=== PATIENT | male | born 1940 | race Caucasian/White ===

== ENCOUNTER 2022-06-21 07:49 | Observation (INO) ==
--- NOTE | 2022-05-30 10:36 | PAT Medication Instructions ---
Medication Instructions Date of Service May 30, 2022 Home Medications Medication Instructions Recorded sildenafil 50 mg tablet (Viagra) 50 mg PO ONCE PRN sexual activity 08/12/21 #10 tabs sildenafil 50 mg tablet (Viagra) 50 mg PO ONCE PRN apixaban 5 mg tablet (Eliquis) 5 mg PO BID cholecalciferol (vitamin D3) 10 mcg (400 unit) tablet (Vitamin D3) 10 mcg PO QAM cyanocobalamin (vitamin B-12) 500 mcg tablet (Vitamin B-12) 500 mcg PO QAM diltiazem HCl 240 mg capsule,24 hr,extended release 240 mg PO QAM fish, borage, flaxseed oils-omega 3,6,9 comb no.1 1,200 mg capsule ([place] 3-6-9) 1 cap PO QAM metoprolol succinate 25 mg capsule sprinkle, ext. release 24 hr 25 mg PO QPM multivitamin 1 tab PO QAM tamsulosin 0.4 mg capsule 0.4 mg PO QAM ASK your prescriber and surgeon apixaban 5 mg tablet (Eliquis) 5 mg PO BID(in order for spinal or epidural anesthesia, Eliquis needs to be stopped 72 hours/3 days before surgery. Please check if okay with doctor that prescribes this to you) STOP taking 2 weeks before surgery (or as soon as possible if surgery is within 2 weeks) fish, borage, flaxseed oils-omega 3,6,9 comb no.1 1,200 mg capsule ([place] 3-6-9) 1 cap PO QAM DO NOT take the morning of surgery sildenafil 50 mg tablet (Viagra) 50 mg PO ONCE PRN cholecalciferol (vitamin D3) 10 mcg (400 unit) tablet (Vitamin D3) 10 mcg PO QAM cyanocobalamin (vitamin B-12) 500 mcg tablet (Vitamin B-12) 500 mcg PO QAM multivitamin 1 tab PO QAM Take morning of surgery With a small sip of water, OTHERWISE NOTHING TO EAT OR DRINK AFTER MIDNIGHT: diltiazem HCl 240 mg capsule,24 hr,extended release 240 mg PO QAM tamsulosin 0.4 mg capsule 0.4 mg PO QAM Take evening before surgery metoprolol succinate 25 mg capsule sprinkle, ext. release 24 hr 25 mg PO QPM Other Notes If you have any questions please call us at [phone] or [phone] or [phone] or [phone]
--- NOTE | 2022-06-03 08:59 | History & Physical Report ---
Date of Service June 03, 2022 date of surgery: 06/21/22 Procedure: Right Total Knee Arthroplasty Surgeon: Anton Walker Assessment & Plan (1) Arthritis of right knee: Plan: At this point time patient has failed conservative measures and like to proceed to right total knee replacement. He will need medical clearance from Dr. Lenz prior to his surgery, we will continue his Eliquis during his postoperative course. Plan will be overnight stay at the hospital with discharge the following day with home health physical therapy when medically stable. We will follow-up in the office 2 weeks postop sooner if he is having any problems The risks and benefits have been discussed including, but not limited to, risk of infection, nerve injury, stiffness, loss of motion, failure to improve, etc. Reasonable outcomes and options of treatment were discussed. An explanation of appropriate alternatives to the procedure that may be advantageous were discussed and their risks and benefits, as well as the risks and benefits of not proceeding with treatment. I offered to answer any additional inquiries concerning the treatment involved. All the patient's questions were answered. The patient is agreeable, understanding of the treatment plan and alternatives, and wishes to proceed with the treatment plan. History of Present Illness Chief Complaint: Right knee pain Primary Care Provider: Crow Lenz MD Nirmal is a pleasant 81-year-old male who presents for preop evaluation prior to his right total knee replacement. Brad states that he has been having pain in his knee for several years now and is gradually worsened to the point is affecting his daily activities. He does use a knee brace daily, he denies any previous surgery. He has had multiple injections in the knee including viscosupplementation, corticosteroid injection as well as regenerative injections in [place]. He denies any relief. He is unable to take anti- inflammatories secondary to taking Eliquis. At this point time is failed conservative measures like proceed with a right total knee replacement Allergies Allergy/AdvReac Type Severity Reaction Status Date / Time percocet Allergy Intermediate Nausea Uncoded 05/27/22 15:13 Home Medications Medication Instructions Recorded Confirmed Type sildenafil 50 mg tablet (Viagra) 50 mg PO ONCE PRN sexual activity 08/12/21 05/27/22 Rx #10 tabs apixaban 5 mg tablet (Eliquis) 5 mg PO BID 05/27/22 05/27/22 History cholecalciferol (vitamin D3) 10 10 mcg PO QAM 05/27/22 05/27/22 History mcg (400 unit) tablet (Vitamin D3) cyanocobalamin (vitamin B-12) 500 500 mcg PO QAM 05/27/22 05/27/22 History mcg tablet (Vitamin B-12) diltiazem HCl 240 mg capsule,24 240 mg PO QAM 05/27/22 05/27/22 History hr,extended release fish, borage, flaxseed oils-omega 1 cap PO QAM 05/27/22 05/27/22 History 3,6,9 comb no.1 1,200 mg capsule ([place] 3-6-9) metoprolol succinate 25 mg capsule 25 mg PO QPM 05/27/22 05/27/22 History sprinkle, ext. release 24 hr multivitamin 1 tab PO QAM 05/27/22 05/27/22 History tamsulosin 0.4 mg capsule 0.4 mg PO QAM 05/27/22 05/27/22 History Past Med/Surg History Medical History Arthritis Atrial fibrillation Enlarged prostate without lower urinary tract symptoms (luts) Erectile dysfunction Gastric ulcer hx GERD (gastroesophageal reflux disease) Hypertension Pacemaker Implanted 2013, follows with Dr. Ivy ([place]) Urinary urgency Surgical History History of cardiac radiofrequency ablation 2017 History of cholecystectomy History of cochlear implant left History of colonoscopy History of esophagogastroduodenoscopy (EGD) History of permanent cardiac pacemaker placement 2013 Family History Father Throat cancer Social History Smoking Status: Former smoker Second Hand Exposure: No; Hx Alcohol Use: No Hx Substance Use: No Preferred Language: [place] It Support Technician Required: No Beliefs That Will Affect Care: None Current Living Situation: Spouse Feels Safe at Home: Yes Assistive Devices: Glasses Review of Systems Review of Systems: All systems reviewed & are unremarkable except as noted in HPI & below Constitutional: no fever, no chills and no sweats Respiratory: no cough and no dyspnea Cardiovascular: no chest pain, no dyspnea and no orthopnea Gastrointestinal: no abdominal pain, no nausea and no vomiting Musculoskeletal: as per Subjective / HPI Physical Exam Physical Exam: HT: 5ft 8in WT: 77.11kg Constitutional: WD/WN, vitals as above no acute distress Respiratory: normal respiratory effort, lungs clear to auscultation no respiratory distress, no labored breathing and does not use accessory muscles Cardiovascular: RRR, no murmur, no edema Gastrointestinal (Abdomen): normal bowel sounds, soft, nontender, no hepatosplenomegaly Musculoskeletal: Knee: + knee abnormal to inspection (Right Knee: ), + effusion (+1 effusion), + limited ROM of knee (ROM 0/3/110), + knee ROM with crepitation, + joint line tenderness (medial joint line) and + Geni's sign positive; no deformity, no skin erythema, no ecchymosis, no valgus laxity, no varus laxity, anterior drawer test negative, Judy's sign negative and pivot shift test negative Results & Data Results & Data ([facility]) Diagnostic Findings Right Knee X-ray: Right knee series showing advanced degenerative changes to the right knee, narrowing of the medial compartment and patello-femoral joint with patellar spurring noted, findings showing joint space narrowing of the medial compartment and patello-femoral joint, osteophyte formation and subchondral sclerosis noted. overall varus alignment. no acute bony pathology noted.
--- NOTE | 2022-06-03 12:06 | Anesthesiology Consultation ---
Date of Service June 03, 2022 Assessment & Plan (1) Encounter for pre-operative examination: - COVID screening: Per assessment on 06/03: No known COVID-19 positive contacts or current COVID-19 related symptoms. Travel screen negative. Patient vaccinated. At surgeon discretion if preop Covid testing being done. - Outpatient joint assessment: Pt currently scheduled for inpatient pathway. If surgeon requests review for outpatient joint pathway, patient is not recommended candidate for outpatient joint program from anesthesia standpoint. - Eliquis instructions: patient made aware that in order for spinal anesthesia, Eliquis needs to be held 72 hours/3 days prior to surgery. Patient voiced understanding/will check if okay with prescriber. - Anesthesia concerns: Pt anxious regarding possible SAB. Discussed SAB vs GA. To discuss further with anesthesiologist AM DOS. 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 - Pt scheduled to see cardio prior to surgery. Awaiting upcoming cardiology office visit note (appt 06/14, Dr. Ivy). Chart Review Chart Review: Patient seen in Pre Admission Testing Teaching & Discussion Pre-Anesthesia Teaching/Discussion Notes: Instructed NPO after midnight before surgery,except medications with 15 cc of water. Medication instructions provided according to the PAT guidelines. History Surgery Operation Date: 06/21/22 09:05 Proposed Procedures p Right Total Knee Arthroplasty - Anton Walker DO Height/Weight Height: 5 ft 8 in Weight: 78.2 kg Allergies Allergy/AdvReac Type Severity Reaction Status Date / Time No Known Allergies Allergy Unverified 06/03/22 12:18 Medications Home Medications Medication Instructions Recorded Confirmed Last Taken sildenafil 50 mg tablet (Viagra) 50 mg PO ONCE PRN sexual activity 08/12/21 05/27/22 Unknown #10 tabs apixaban 5 mg tablet (Eliquis) 5 mg PO BID 05/27/22 05/27/22 Unknown cholecalciferol (vitamin D3) 10 10 mcg PO QAM 05/27/22 05/27/22 Unknown mcg (400 unit) tablet (Vitamin D3) cyanocobalamin (vitamin B-12) 500 500 mcg PO QAM 05/27/22 05/27/22 Unknown mcg tablet (Vitamin B-12) diltiazem HCl 240 mg capsule,24 240 mg PO QAM 05/27/22 05/27/22 Unknown hr,extended release fish, borage, flaxseed oils-omega 1 cap PO QAM 05/27/22 05/27/22 Unknown 3,6,9 comb no.1 1,200 mg capsule ([place] 3-6-9) metoprolol succinate 25 mg capsule 25 mg PO QPM 05/27/22 05/27/22 Unknown sprinkle, ext. release 24 hr multivitamin 1 tab PO QAM 05/27/22 05/27/22 Unknown tamsulosin 0.4 mg capsule 0.4 mg PO QAM 05/27/22 05/27/22 Unknown Past Medical History Medical History Arthritis Atrial fibrillation Enlarged prostate without lower urinary tract symptoms (luts) Erectile dysfunction Gastric ulcer hx GERD (gastroesophageal reflux disease) Hypertension Pacemaker Implanted 2013, follows with Dr. Ivy ([place]) Urinary urgency Exercise / Class Metabolic Activity III < 4 Walking/Shop/Light housework Past Family History Family History Father Throat cancer Past Surgical History Surgical History History of cardiac radiofrequency ablation 2017 History of cholecystectomy History of cochlear implant left History of colonoscopy History of esophagogastroduodenoscopy (EGD) History of permanent cardiac pacemaker placement 2013 Past Anesthesia History No Hx of Anesthesia Complications and No Family Hx of Anesthesia Complications History of PONV No Hx of PONV and No Hx of Motion Sickness Social History Smoking Status: Former smoker tobacco type: cigarettes Do You Dip or Chew Tobacco: No Smoking End Date: Quit 60+ yr ago Hx Alcohol Use: No Hx Substance Use: No Review of Systems Patient denies chest pain, shortness of breath, fever, chills, cough, wheezing, palpitations. Physical Exam Vital Signs VITALS BP 118/73 P 60 TEMP 97.9 SP02 97%RA RESP 18 PHYSICAL Full cervical extension range of motion. Full TMJ range of motion. TMD 4 finger breaths Mallampati Score 2 Dentition: upper partial Lungs: clear throughout to auscultation Cardiac: regular rate and rhythm, no murmurs noted Spine: normal Carotid arteries: negative bruit Extremities: no edema + cochlear implant on left, hearing aid on right Lab Results Anesthesia Preop Results Results Anesthesia Widget: WBC 8.97 K/ul (4.8-10.8) 06/03/22 Hgb 15.1 g/dl (14.0-18.0) 06/03/22 Hct 43.3 % (42.0-52.0) 06/03/22 Plt 199 K/uL (130-400) 06/03/22 Na 138 mmol/L (136-145) 06/03/22 K 4.5 mmol/L (3.5-5.1) 06/03/22 Cl 103 mmol/L (98-107) 06/03/22 CO2 31 mmol/L (21-32) 06/03/22 BUN 23 mg/dl (6-23) 06/03/22 Creat 1.43 mg/dl (0.6-1.4) H 06/03/22 Glucose Level 96 mg/dl (70-99(Fasting)) 06/03/22 PT 10.9 Seconds (9.0-12.0) 06/03/22 PTT 28.5 Seconds (21.0-31.0) 06/03/22 INR 1.0 (0.9-1.1) 06/03/22 HA1c 5.7 % (4.5-5.6) H 06/03/22 Urine Color Yellow 06/03/22 Urine Appearance Clear (Clear) 06/03/22 Urine pH 5.5 (4.5-7.5) 06/03/22 Urine Specific [place] 1.005 (1.000-1.030) 06/03/22 Urine Protein Negative (Negative) 06/03/22 Urine Glucose (UA) Negative (Negative) 06/03/22 Urine Ketones Negative (Negative) 06/03/22 Urine Blood Negative (Negative) 06/03/22 Urine Nitrite Negative (Negative) 06/03/22 Urine Bilirubin Negative (Negative) 06/03/22 Urine Urobilinogen Negative (Negative) 06/03/22 Urine Leukocyte Esterase Trace (Negative) H 06/03/22 Urine WBC (Auto) 1-5 /hpf (0-5) 06/03/22 Urine RBC (Auto) 0-4 /hpf (0-4) 06/03/22 Urine Hyaline Casts (Auto) 0 /lpf (0-5) 06/03/22 Urine Epithelial Cells (Auto) 0-5 /lpf (0-5) 06/03/22 Urine Bacteria (Auto) Negative (Negative) 06/03/22 Blood Type B Positive 06/03/22 Antibody Screen NEGATIVE 06/03/22 Testing Electrocardiogram Date: 06/03/22 Atrial-paced rhythm at 64bpm. Chest X-Ray Date: 06/03/22 FINDINGS: The lungs are clear. Cardiac silhouette is normal in size. No pleural effusions. No pneumothorax. There is a left-sided dual-chamber pacemaker. IMPRESSION: No acute process. Other Testing Pacer check (04/28/22) Battery life 3 years. Mode DDDR. RVP 42%. RVP 1%. No significant device related abnormalities noted per report. COVID-19 Risk Screen Screening Information COVID-19 Screen Date: 06/03/22 Exposure 21 Days Family/Household +COVID Last 21 Days: No Exposure 10 Days Any COVID Exposure Last 10 Days: No Symptoms Last 10 Days Experienced COVID Sx Last 10 Days: No + COVID 0-90 Days COVID + in Last 0-90 Days: No
[~2022-06-21 07:49] MED LIST: ACETAMINOPHEN 500 MG TAB PO SCH; BUPIVACAINE 0.5 % 5 MG/1 ML PF 10ML VIAL ONE; CeleBREX 200 MG CAP PO SCH; FAMOTIDINE 20 MG TAB PO SCH; GABAPENTIN 300 MG CAP PO SCH; METOCLOPRAMIDE HCL 10 MG TABLET PO SCH; ROPIVACAINE 0.5% 5 MG/ML 30 ML VIAL ONE; ROPIVACAINE 0.5% HCL/PF 150 MG, BUPIVACAINE 0.75% MPF 20 ML, EPINEPHrine 30MG/30ML (OR ... INSTIL SCH; ceFAZolin 2000MG 2,000 MG/15 ML SYR IV SCH; dexAMETHasone 4 MG TAB PO SCH
--- NOTE | 2022-06-21 09:10 | History & Physical Bridge Note ---
Date of Service June 21, 2022 History & Physical Bridge Note I have examined the patient, reviewed the History & Physical and in the interval since the performance of the History & Physical I have noted the following changes of clinical significance: no changes noted
[2022-06-21] MEDS ORDERED: MIDAZOLAM HCL 1 MG/ML 2ML VIAL ONE (10:00)
[2022-06-21] MEDS ORDERED: LIDOCAINE 2% MPF LOCAL 5 ML VIAL INFIL ONE (10:00)
[2022-06-21] MEDS ORDERED: PROPOFOL IV EMULSION 10 MG/ML 20 ML VIAL IV ONE ×2 (10:00→13:30)
[2022-06-21] MEDS ORDERED: ePHEDrine sulfate 50 MG/ML AMP IV PRN (10:36)
[2022-06-21] MEDS ORDERED: ONDANSETRON INJ 2 MG/ML 2 ML VIAL IV PRN ×2 (10:36→15:03)
[2022-06-21] MEDS ORDERED: fentaNYL citrate 100 MCG/2 ML VIAL IV PRN (10:36)
[2022-06-21] MEDS ORDERED: ATROPINE SULFATE 0.1 MG/ML 10ML SYR IV PRN (10:36)
[2022-06-21] MEDS ORDERED: ORTHO JOINT ANESTHETIC ONE (10:44)
[2022-06-21] MEDS ORDERED: TRANEXAMIC ACID / 0.7% NACL 1000MG/100ML BAG IV ONE (11:50)
[2022-06-21] MEDS ORDERED: TRANEXAMIC ACID / 0.7% NACL 1,000 MG/100 ML BAG IV ONE ×2 (11:54→12:00)
[2022-06-21] MEDS ORDERED: ePHEDrine sulfate 50 MG/ML SYR ONE (12:20)
[2022-06-21] MEDS ORDERED: PHENYLEPHRINE 100MCG/ML 5ML SYR ONE (13:01)
--- NOTE | 2022-06-21 13:08 | Operative Report ---
Post Operative Report Pre & Post Diagnosis Operation Date: 06/21/22 10:45 Pre-Op Diagnosis: Right Knee Osteoarthritis Post-Op Diagnosis: Right Knee Osteoarthritis I identified the patient and participated in the time-out.: Yes Procedure Operation Date: 06/21/22 10:45 Actual Procedures p Right Total Knee Arthroplasty(Right) utilizing Lipscomb & NephHive7 journey 2 nonblock total knee arthroplasty size femur 5 tibia 5 Poly 12 patella 35 sumi- Anton Walker DO Surgeon Anton Walker DO Gaming Department Head RONDA Mujica Estimated Blood Loss 5 Findings Consistent with Post-Op Diagnosis Patient presents with severe end-stage tricompartmental DJD 7 degree flexion contracture varus alignment subchondral sclerosis marginal osteophytes eburnated [id number] with large effusion Specimens Bone and cartilage Drains Medium bore Hemovac Anesthesia Type MAC Spinal Regional Complications none Disposition Accompanied Patient To Recovery: No Disposition: Recovery Room Indications Patient presents after failed attempted conservative management clinic physical therapy anti-inflammatories relative rest activity modification corticosteroid injection viscosupplementation above intraoperative findings were noted Description of Procedure After proper prepping and draping of the Right lower extremity anterior midline incision was made over the region of the extensor extensor mechanism after meticulous hemostasis was obtained and maintained in subcutaneous tissues a medial parapatellar incision was made The patella was subluxed lateralward the medial lateral gutter were cleaned from any hypertrophic synovitis and scar tissue of the distal femoral block was placed and the distal femoral osteotomy cut was made subsequently the chamfers anterior and posterior osteotomy cuts were made utilizing the 4-in-1 block the tibia was subsequently subluxed anteriorward medial and ateral meniscal remnants were excised in their entirety remnants of the anterior and posterior cruciate ligaments were excised in their entirety excellent exposure of the proximal tibia was obtained the tibial osteotomy guide was placed on the proximal tibial osteotomy cut was made once again the knee was irrigated with copious amounts of sterile saline solution the patella was subsequently everted lateralward thickened scar tissue around the patella was removed the patella was subsequently cut utilizing a freehand technique and was drilled prepared for final preparation and placement of patella socially flexion-extension gaps were checked and the equal and symmetric trials were placed to the appropriate femoral and tibial trials with poly-spacer being placed for equal flexion and extension gaps and full range of motion including extension to 0 and flexion to 140 the trial components after having been taken to recovery range of motion was subsequently removed meticulous hemostasis was obtained and maintained subsequently a knee block injection of joint cocktail including ropivacaine 0.5% 150 mg. Bupivacaine 0.5% epinephrine 1-200,030 mL's toradol 30 mg dexamethasone 4 mg ketamine 10 mg clonidine 100 karley rograms normal saline solution 30 mg was infiltrated into the soft tissues of the posterior knee medial lateral gutters and periosteal synovium special attention was paid to protect neurovascular structures at all times subsequently trial components having been removed the knee was irrigated with sterile saline solution. debris was removed the proximal tibia was subsequently prepared and was made ready for the placement of the tibial component tibial component was also cemented and tamped into position the femoral component was subsequently placed and cemented in the position the patellar component was subsequently cemented in position because hemostasis once again obtained and maintained wound having been thoroughly irrigated with debridement and debridement lavage was performed as well as a medial parapatellar incision closed with #1 Vicryl in interrupted fashion subcutaneous was closed with #2 Vicryl skin was closed with skin clips. PA-C was necessary for prepping and drapping as well as wound closure of deep fascia Sub cutaneous tissue and skin and was necessary for the case. A sterile compressive dressing was placed patient was taken to recovery in stable condition of report dictated by Aaron I attest to the content of the Intraoperative Record and any orders documented therein. Any exceptions are noted below.Due to the complex nature of the procedure, the entire surgery was performed with the operational assistance of RONDA Mujica. The construction assistant, under direct supervision, was involved in the actual performance of all aspects of the surgical procedure including hemostasis, tissue retraction and incision, instrument management, patient positioning, and wound closure. I attest to the content of the Intraoperative Record and any orders documented therein. Any exceptions are noted below.
--- NOTE | 2022-06-21 14:42 | Anesthesiology Progress Note ---
Date of Service June 21, 2022 Anesthesia Post Procedure Vital Signs Vital Signs: Temp Pulse Pulse Resp BP Pulse Ox O2 Del Method 06/21/22 14:30 63 20 98/55 L 97 Room Air 06/21/22 14:20 64 16 99/56 L 99 Room Air 06/21/22 14:10 60 20 97/54 L 93 Oxymask 06/21/22 14:00 62 18 99/54 L 94 Oxymask 06/21/22 13:50 69 22 95/55 L 95 Oxymask 06/21/22 13:41 36.3 C L 60 66 18 92/53 L 97 Oxymask 06/21/22 08:54 36.7 C 66 18 133/79 97 Room Air O2 Flow Rate 06/21/22 14:30 06/21/22 14:20 06/21/22 14:10 2 06/21/22 14:00 2 06/21/22 13:50 6 06/21/22 13:41 6 06/21/22 08:54 Transfer of Care Handoff Completed per policy Notes Mental Status: alert / awake / arousable Patient Amnestic to Procedure: Yes Nausea / Vomiting: adequately controlled Pain: adequately controlled Airway Patency, RR, SpO2: stable & adequate BP & HR: stable & adequate Hydration State: stable & adequate Anesthetic Complications: no major complications apparent
--- NOTE | 2022-06-21 14:44 | XRay Report ---
XR knee RT 1 or 2V routine CLINICAL HISTORY: Postoperative evaluation. COMPARISON: None FINDINGS: Alignment of the total right knee arthroplasty is anatomic. There is no periprosthetic fra cture or unexpected radiopaque foreign body. Drains are in place. IMPRESSION: Expected findings following total right knee arthroplasty. ACT 112: Negative or not required by law. Electronically signed by: Matheus Bond M.D. 06/21/2022 2:43 PM
[2022-06-21] MEDS ORDERED: LR 500ML BOLUS, THEN 15ML/HR IV SCH (15:00)
[2022-06-21] MEDS ORDERED: MAGNESIUM HYDROXIDE SUSP 30 ML UDC PO PRN (15:03)
[2022-06-21] MEDS ORDERED: NALOXONE HCL 0.4 MG/1 ML VIAL/CARP IV PRN (15:03)
[2022-06-21] MEDS ORDERED: bisacodyL 10 MG SUPP PR PRN (15:03)
[2022-06-21] MEDS ORDERED: HYDROmorphone INJ 0.5 MG/0.5 ML SYR IV PRN (15:03)
[2022-06-21] MEDS ORDERED: METOCLOPRAMIDE HCL INJ 5 MG/ML 2 ML VIAL IV PRN (15:03)
[2022-06-21] MEDS ORDERED: SODIUM CHLORIDE 0.9% 1000ML 1,000 ML IV SCH (15:03)
[2022-06-21] MEDS ORDERED: diphenhydrAMINE Capsule 25 MG CAP PO PRN (15:03)
[2022-06-21] MEDS ORDERED: oxyCODONE HCL IR 5 MG TAB (IMMEDIATE RELEASE) PO PRN (15:03)
[2022-06-21] MEDS: ACETAMINOPHEN 500 MG TAB PO SCH ×2 (15:50→21:43)
[2022-06-21] MEDS: ceFAZolin 2000MG 2,000 MG/15 ML SYR IV SCH (20:55)
[2022-06-21] MEDS ORDERED: SENNA 8.6 MG TAB PO SCH (21:00)
[2022-06-21] MEDS ORDERED: METOPROLOL SUCC 25MG EXT REL TAB PO SCH (21:00)
[2022-06-21] MEDS: DOCUSATE SODIUM 100 MG CAP PO SCH (21:41)
[2022-06-21] MEDS: APIXABAN 5 MG TABLET PO SCH (21:42)
[2022-06-22] MEDS: ceFAZolin 2000MG 2,000 MG/15 ML SYR IV SCH (05:53)
[2022-06-22] MEDS: ACETAMINOPHEN 500 MG TAB PO SCH (05:54)
[2022-06-22 06:58] LABS: Hematocrit (blood only) 39.1 % (42.0-52.0); Hemoglobin 13.7 g/dl (14.0-18.0); Mean Corpuscular Hemoglobin 31.9 pg (25.0-34.0); Mean Corpuscular Volume 90.9 fL (80.0-100.0); Mean Platelet Volume 9.6 fL (9.4-12.4); Platelet Count 182 K/uL (130-400); RDW Coefficient of Variation 11.6 % (11.5-14.5); White Blood Count 22.36 K/ul (4.8-10.8)
[2022-06-22 07:45] LABS: BUN Creatinine Ratio 15.7 (10-20); Calcium 8.6 mg/dl (8.5-10.1); Creatinine Clr Calc Pharmacy 33.8 ml/min; Est GFR (African American) 44.4 ml/min; Est GFR (Non-African American) 38.3 ml/min; Potassium 4.4 mmol/L (3.5-5.1)
[2022-06-22] MEDS: APIXABAN 5 MG TABLET PO SCH (08:23)
[2022-06-22] MEDS: DOCUSATE SODIUM 100 MG CAP PO SCH (08:24)
--- NOTE | 2022-06-22 08:26 | Orthopedic Progress Note ---
Date of Service June 22, 2022 Assessment & Plan (1) History of total right knee replacement: Plan: POD #1 s/p Right TKA pt/ot dvt proph with INO/SCD/resume his Eliquis plan for d/c home with HHPT Admission and Anticipated Discharge Date Admission Date: June 21, 2022 Subjective POD #1 s/p Right TKA Review of Systems Constitutional: no fever, no chills and no sweats Respiratory: no cough and no dyspnea Cardiovascular: no chest pain and no dyspnea Gastrointestinal: no abdominal pain, no nausea and no vomiting Physical Exam Physical Exam: Vital Signs Temp 36.5 C 06/22/22 07:27 Pulse 64 06/22/22 07:27 Resp 16 06/22/22 07:27 BP 114/68 06/22/22 07:27 Pulse Ox 92 06/22/22 07:27 O2 Del Method Room Air 06/22/22 07:27 O2 Flow Rate 2 06/21/22 14:10 Intake & Output 06/21/22 06/22/22 06/22/22 18:59 06:59 18:59 Intake Total 2200 / 2801.667 601.667 / 2801.667 Output Total 5 / 1405 1400 / 1405 Balance 2195 / 1396.667 -798.333 / 1396.66 7 Weight 77.6 kg Intake: IV 200 / 801.667 601.667 / 801.667 Lactated Ringe r's 1,000 ml @ 15 0 / 0 mls/hr IV .Q24 H RAD[facility] Rx#: [id number] Sodium Chlorid e 0.9% 1000ML 1, 601.667 / 601.667 000 ml @ 100 m ls/hr IV .Q10H [facility] Rx#:[id number] Tranexamic Aci d / 0.7% NaCl 1, 200 / 200 000 mg In 100 ml @ 600 mls/hr IV 1200 ONE Rx #:[id number] IV Perioperative 1999 / 1999 Output: Urine 1200 / 1200 Estimated Blood Loss 5 / 5 Drain Output 200 / 200 Right Knee Hem ovac 200 / 200 Other: Weight Measureme nt Method Standing Scale Musculoskeletal: Right Leg: NVDI, calf SNT, negative donovan sign. DP palpable, able to wiggle toes/ankle movement without difficulty. dressing clean dry and intact. Results & Data ([facility]) Vital Signs (Past 12 Hours) Vital Signs Temp Pulse Resp BP Pulse Ox O2 Del Method 06/22/22 07:27 36.5 C 64 16 114/68 92 Room Air 06/22/22 02:49 36.7 C 66 16 110/66 95 Room Air 06/21/22 22:48 36.4 C L 72 16 113/67 95 Room Air Laboratory Results Laboratory Results WBC 22.36 K/ul (4.8-10.8) H 06/22/22 06:22 RBC 4.30 M/uL (4.70-6.10) L 06/22/22 06:22 Hgb 13.7 g/dl (14.0-18.0) L 06/22/22 06:22 Hct 39.1 % (42.0-52.0) L 06/22/22 06:22 MCV 90.9 fL (80.0-100.0) 06/22/22 06:22 MCH 31.9 pg (25.0-34.0) 06/22/22 06:22 MCHC 35.0 g/dL (32.0-36.0) 06/22/22 06:22 RDW Std Deviation 39.0 fL (36.4-46.3) 06/22/22 06:22 RDW Coeff of Dayana 11.6 % (11.5-14.5) 06/22/22 06:22 Plt Count 182 K/uL (130-400) 06/22/22 06:22 MPV 9.6 fL (9.4-12.4) 06/22/22 06:22 Sodium 135 mmol/L (136-145) L 06/22/22 06:22 Potassium 4.4 mmol/L (3.5-5.1) 06/22/22 06:22 Chloride 103 mmol/L (98-107) 06/22/22 06:22 Carbon Dioxide 26 mmol/L (21-32) 06/22/22 06:22 Anion Gap 6 (3-11) 06/22/22 06:22 BUN 26 mg/dl (6-23) H 06/22/22 06:22 Creatinine 1.66 mg/dl (0.6-1.4) H 06/22/22 06:22 Est Cr Clr Drug Dosing 33.8 ml/min 06/22/22 06:22 Est GFR ( Amer) 44.4 ml/min 06/22/22 06:22 Est GFR (Non-Af Amer) 38.3 ml/min 06/22/22 06:22 BUN/Creatinine Ratio 15.7 (10-20) 06/22/22 06:22 Glucose 134 mg/dl (70-99(Fasting)) H 06/22/22 06:22 Calcium 8.6 mg/dl (8.5-10.1) 06/22/22 06:22 SARS-CoV-2, RNA, NAAT NEGATIVE (NEGATIVE) 06/21/22 08:29 Impressions Knee X-Ray 06/21/22 13:53 XR knee RT 1 or 2V routine CLINICAL HISTORY: Postoperative evaluation. COMPARISON: None FINDINGS: Alignment of the total right knee arthroplasty is anatomic. There is no periprosthetic fracture or unexpected radiopaque foreign body. Drains are in place. IMPRESSION: Expected findings following total right knee arthroplasty. ACT 112: Negative or not required by law. Electronically signed by: Matheus Bond M.D. 06/21/2022 2:43 PM
--- NOTE | 2022-06-22 08:36 | Discharge Summary ---
Date of Service date of discharge: June 22, 2022 date of admission: June 21, 2022 Admission HPI Per Admitting Provider Nirmal is a pleasant 81-year-old male who presents for preop evaluation prior to his right total knee replacement. Brad states that he has been having pain in h is knee for several years now and is gradually worsened to the point is affecting his daily activities. He does use a knee brace daily, he denies any previous surgery. He has had multiple injections in the knee including viscosupplementation, corticosteroid injection as well as regenerative injections in [place]. He denies any relief. He is unable to take anti- inflammatories secondary to taking Eliquis. At this point time is failed conservative measures like proceed with a right total knee replacement Principal Diagnosis right knee osteoarthritis Discharge Exam Vital Signs Temp 36.5 C 06/22/22 07:27 Pulse 64 06/22/22 07:27 Resp 16 06/22/22 07:27 BP 114/68 06/22/22 07:27 Pulse Ox 92 06/22/22 07:27 O2 Del Method Room Air 06/22/22 07:27 O2 Flow Rate 2 06/21/22 14:10 Intake & Output 06/21/22 06/22/22 06/22/22 18:59 06:59 18:59 Intake Total 2200 / 2801.667 601.667 / 2801.667 Output Total 5 / 1405 1400 / 1405 Balance 2195 / 1396.667 -798.333 / 1396.667 Weight 77.6 kg Intake: IV 200 / 801.667 601.667 / 801.667 Lactated Ringer's 1,000 ml @ 15 0 / 0 mls/hr IV .Q24H [facility] Rx#: [id number] Sodium Chloride 0.9% 1000ML 1, 601.667 / 601.667 000 ml @ 100 mls/hr IV .Q10H [facility] Rx#:[id number] Tranexamic Acid / 0.7% NaCl 1, 200 / 200 000 mg In 100 ml @ 600 mls/hr IV 1200 ONE Rx#:[id number] IV Perioperative 1999 / 1999 Output: Urine 1200 / 1200 Estimated Blood Loss 5 / 5 Drain Output 200 / 200 Right Knee Hemovac 200 / 200 Other: Weight Measurement Method Standing Scale Musculoskeletal Right Knee: NVDI, calf SNT, negative donovan sign. DP palpable, able to wiggle toes/ankle movement without difficulty. dressing clean dry and intact. expected post-operative bruising noted. Discharge Data Allergies Allergy/AdvReac Type Severity Reaction Status Date / Time No Known Allergies Allergy Verified 06/21/22 08:50 Procedures Performed Operation Date: 06/21/22 10:45 Actual Procedures p Right Total Knee Arthroplasty(Right) - Anton Jarquin DO Ordered Studies 06/21/22 05:00 US - OR guided needle placemen Routine Hospital Course (1) History of total right knee replacement: POD #1 s/p Right TKA pt/ot dvt proph with INO/SCD/resume his Eliquis plan for d/c home with HHPT Total Time Total Time Spent Total Time Spent (In Minutes): 20 Discharge Plan Discharge Items Patient Disposition: Home - Home Health Services Reason For Visit: POST OP TKA Discharge Diagnosis: RIGHT TOTAL KNEE REPLACEMENT Activity: Per Instructions section Weightbearing Comment: WBAT WITH WALKER Non-emergency contact: Surgeon Call non-emergency contact if: you have any medication questions, your temperature is above 101, your wound has increased redness, your wound has increased drainage and your wound pain has increased Follow-up/Referrals: Crow Lenz MD [Primary Care Provider] - Diet: Regular Addtl Attending Provider Instructions: ACTIVITY RECOMMENDATIONS: SELF CARE INSTRUCTIONS AFTER TOTAL KNEE REPLACEMENT A. You may need to continue a physical therapy program after discharge from the hospital. There are several options available to you. Your doctor will assist you in selecting the best one for you. 1. An out-patient facility 2 to 3 times a week for therapy or home therapy. 2. Continue working on all exercises taught to you in the hospital. Your goals should be to increase bending of your knee to 90 degrees and beyond and to fully straighten your knee. B. You may progress at your own pace from walking with a walker or crutches to a cane; then to no assistive devices. C. Make walking a part of your daily routine. Be up as much as comfortable with rest periods throughout the day. Rest with leg elevation is very important. Use the ice wrap frequently for the first 3-4 weeks. D. There are no restrictions on activities. You may ride in a car, shop, pa rticipate in emd special education teacher and all social activities. E. Wear the long elastic stockings (INO hose) 20 hours a day for 2 weeks after surgery. They can be removed several times a day for laundering and for a bath. F. You may shower, no tub baths until cleared by your doctor. SPECIAL CARE INSTRUCTIONS: VERY IMPORTANT TO READ AND REVIEW A. There are a few signs you need to watch for after you are home. Call [facility] [place] if you notice any of the followin. Increased severe knee pain. Some pain is expected especially when you exercise. 2. Increased swelling in your leg or knee; pain or swelling of the calf muscle in either lower leg. 3. Any fluid drainage from the incision. 4. Shortness of breath or chest pain. B. Please call [facility] at if you have any concerns or questions about your operation or recovery. The doctor or his nurse will return your call promptly. C. You must take antibiotics before dental work, bladder, bowel or other surgery. Your doctor will provide you with a permanent care to carry describing this precaution. IMPORTANT: * RESUME YOUR REGULAR DOSE OF ELIQUIS POST OP. * HIGH RISK PATIENTS MAY BE PRESCRIBED A STRONGER BLOOD THINNER. THIS WILL BE PROVIDED AT DISCHARGE. * CALL IF INCREASED PAIN, REDNESS, DRAINAGE OR FEVER GREATER THAT 101. * WEAR INO HOSE 20 HOURS PER DAY FOR 2 WEEKS. * DRESSING INSTRUCTIONS * ARIANA Dressing- This is a large suction dressing covering your incision. This will help pull any excess drainage from the wound and allow your incision to heal properly. You may shower with this if you can keep the unit outside of the shower. If any bleeding or leakage is noted please call your doctor's office. This will remain on your incision for 7 days and then should be removed. This can be done yourself or by the home nursing staff if applicable. The entire unit is disposable once removed. Once removed, keep incision clean and dry. If redness or drainage is noted, please call your surgeon. ONCE ARIANA IS REMOVED, FOLLOW THESE INSTRUCTIONS: DERMABOND Prineo- This is a mesh tape dressing that is covered with glue. It should remain in place until the incision is properly healed, usually 10-14 days. This dressing is designed to naturally slough off. You may trim the excess mesh tape as it peels off. Incision may be briefly wet in a shower. Dry immediately by blotting with a clean, dry towel. Do not bath or swim until instructed by your doctor. Do not scratch, rub, or pick at the dressing. Do not apply any topical ointments or lotions until dressing is completely removed and/or instructed by your doctor. There may be a small piece of suture material at one end of your incision. Do not pull or trim this. If it is bothersome or catching on clothing, you may co sravani it with a band-aid. IF INCISION IS LEAKING THROUGH DRESSING, CALL THE OFFICE . FOLLOW UP VISIT: If appointment is not already scheduled: Please call [facility] [place] to make a follow-up appointment for 2 weeks after your surgery at . Pending Studies at Discharge: No Stand-Alone Forms: My [facility] Medications and DC Order Prescriptions: New acetaminophen [Tylenol Extra Strength] 500 mg Tablet 1,000 mg PO Q8 21 Days Qty: 126 0RF oxycodone 5 mg Tablet 5 - 10 mg PO Q6H PRN (Reason: pain) Qty: 30 0RF Rx Instructions: ONGOING THERAPY, SUPERVISING DR LINDSAY JARQUIN. MAX 6 TABS IN 24 HOURS docusate sodium 100 mg Capsule 100 mg PO BID 10 Days Qty: 20 0RF cefadroxil 500 mg capsule 500 mg PO BID 14 Days Qty: 28 0RF Continued sildenafil [Viagra] 50 mg tablet 50 mg PO ONCE PRN (Reason: sexual activity) Qty: 10 6RF Rx Instructions: administer 30 minutes to 4 hours before activity multivitamin Tablet 1 tab PO QAM diltiazem HCl 240 mg Capsule,Extended Release 24 Hr 240 mg PO QAM cyanocobalamin (vitamin B-12) [Vitamin B-12] 500 mcg Tablet 500 mcg PO QAM cholecalciferol (vitamin D3) [Vitamin D3] 10 mcg (400 unit) Tablet 10 mcg PO QAM Eliquis 5 mg Tablet 5 mg PO BID metoprolol succinate 25 mg Capsule,Sprinkle,Er 24hr 25 mg PO QPM tamsulosin 0.4 mg capsule 0.4 mg PO QAM Discontinued [place] 3-6-9 1,200 mg Capsule 1 cap PO QAM Admission Data Admit Date/Time: 06/21/22 13:53 Attending Provider: Anton Jarquin Admit Provider: Anton Jarquin Primary Care Provider: Crow Lenz
[2022-06-22] MEDS ORDERED: MULTIVITAMIN TAB PO SCH (09:00)
[2022-06-22] MEDS ORDERED: dilTIAZem HCL 240 MG CAPCR PO SCH (09:00)
[2022-06-22] MEDS ORDERED: CHOLECALCIFEROL 400 UNITS 10 MCG TAB PO SCH (09:00)
[2022-06-22] MEDS ORDERED: CYANOCOBALAMIN (B-12) 500 MCG TABLET PO SCH (09:00)
[2022-06-22] MEDS ORDERED: TAMSULOSIN HCL 0.4 MG CAP PO SCH (09:00)
[2022-06-24] MEDS ORDERED: LR 500ML BOLUS, THEN 15ML/HR IV SCH (06:00)
== END 2022-06-22 13:46 | disposition home health service (06) ==
LOC: ASU 07:49 → 3E 07:49

== ENCOUNTER 2023-09-09 23:29 | Inpatient (IN) ==
--- NOTE | 2023-09-10 00:22 | Emergency Department Note ---
Impression & Plan Ventricular tachycardia, Near syncope Admit to the [facility] ED Provider Note NAME: KHARI ROA AGE: 82 SEX: Male INFORMANT: Patient ED PROVIDER(S): Josefina Henderson DO CHIEF COMPLAINT: Episode of shortness of breath and near syncope PLAN: Disposition: Admit to the [facility] MEDICAL DECISION MAKING: This is an 82-year-old male patient who presents to the emergency department after an abrupt episode of shortness of breath, head pressure, facial flushing, loss of vision and near syncope. The patient has had these episodes before and had a pacemaker placed. Following this episode, the patient felt very dizzy, fatigued and lightheaded for period of time. Laboratory studies revealed no leukocytosis or anemia. BUN was 30 and creatinine was 1.79. This was consistent with some mild dehydration. Alcohol level was negative. Troponin was normal. Patient was bolused with normal saline solution. His [employer] pacer was interrogated and noted 22- second run of ventricular tachycardia at a rate as high as 222 bpm. Care/management discussed with: The patient's cousin who is at the bedside; the [employer] rep; the [facility] Triage Nursing notes: Reviewed and agree with them. Vital Signs: reviewed and unremarkable Additional History obtained from: The patient's cousin who is at the bedside Chronic Medical/Social Conditions affecting care: [id number] post ablation and pacemaker placement Prior/ Outside/ External records reviewed: The [employer] interrogation of the pacemaker Differential Diagnosis: Ventricular arrhythmia; atrial arrhythmia; dehydration; GERD Diagnostics, independently interpreted by me: ECG: Normal sinus rhythm at [address] segment elevation or signs of ischemia. There is no ectopy Cardiac Monitoring: Normal sinus rhythm at 68 Imaging studies: Portable chest x-ray-as per my independent interpretation- cardiomegaly with mild pulmonary vascular congestion HPI: 82 year old Male arrives for evaluation of near syncope. [place] when he had a very sudden onset of flushing in his face and a feeling as if he could not breathe. He then developed head pressure and his vision began to close in. He told his cousin he felt as if he was going to fall off his chair. This quickly passed and he felt dizzy, fatigued and lightheaded. Patient describes a previous episodes like this prior to his pacemaker. PAST MEDICAL HISTORY: Atrial fibrillation-status post ablation, pacemaker placement; see below PAST SURGICAL HISTORY: See Below, SOCIAL HISTORY: See Below, HOME MEDICATIONS: See list ALLERGIES: None VITALS: See Below PHYSICAL EXAMINATION: HEENT: Head - normocephalic and atraumatic. Pupils are equal, round, and reactive to light. Extraocular eye muscles are intact and sclera are anicteric. Ears - bilaterally patent canals with noninjected tympanic membranes and no evidence of hemotympanum. Nose - moist nasal mucosa without discharge. Mouth - moist buccal mucosa. Oropharynx is nonerythematous and there is no tonsillar exudate or edema noted. Neck: Supple; no JVD or cervical lymphadenopathy Heart: Regular rate and rhythm. There is a normal S1 and S2 with no murmurs, clicks, or gallops appreciated. Lungs: Clear to auscultation bilaterally with no wheezes, rales, or rhonchi. Abdomen: Soft, completely nontender, nondistended, with good bowel sounds. There are no palpable pulsatile masses or hepatosplenomegaly. There is no guarding, rigidity, or rebound noted. Extremities: No evidence of cyanosis, clubbing, or edema. There are easily palpable peripheral pulses. Neuro:The patient is awake and alert, oriented to day, time, and place. Muscle strength is 5/5 in all 4 extremities. The patient has equal store hand strength and equal pedal push and pull. There are no cerebellar signs. Emergency department course: The patient was evaluated in room C-11. A complete history and physical was performed. An order was placed for continuous cardiac monitoring. The patient was in a normal sinus rhythm at a rate of 68. A twelve-lead EKG was obtained. His pacer was interrogated. Patient was bolused with IV normal saline solution. I discussed the case with the rep from [employer]. I kept the patient and his cousin abreast of the situation. They were communicating with another family member who is a nurse. I discussed the case with the [facility] and they will evaluate for further inpatient care. Past Med/Surg History Medical History (Updated 09/11/23 @ 02:48 by Josefina Henderson DO) BPH with obstruction/lower urinary tract symptoms Pacemaker Implanted 2013, follows with Dr. Ivy ([place]) Atrial fibrillation Erectile dysfunction GERD (gastroesophageal reflux disease) Hypertension Gastric ulcer hx Urinary urgency Enlarged prostate without lower urinary tract symptoms (luts) Arthritis Surgical History (Updated 09/10/23 @ 16:48 by JUAN Paniagua) History of esophagogastroduodenoscopy (EGD) History of cochlear implant left History of cardiac radiofrequency ablation 2017 History of permanent cardiac pacemaker placement 2013 History of colonoscopy History of cholecystectomy Family History Father Throat cancer Social History Smoking Status: Former smoker Second Hand Exposure: No; Do You Dip or Chew Tobacco: No; Hx Alcohol Use: Yes Alcohol type: beer Hx Substance Use: No Preferred Language: Macanese Communication Ability: Effective Restrooms Or Lounges Maid Required: No Beliefs That Will Affect Care: None Current Living Situation: Spouse Current Living Situation Comment: Home with Other Information That Helps Us Care for You: No Feels Safe at Home: Yes Safety Concerns: Feels Safe At This Time Assistive Devices: Hearing Aid - Right Assistive Devices Comment: Left sided cochlear implant Allergies Allergies Allergy/AdvReac Type Severity Reaction Status Date / Time No Known Allergies Allergy Verified 06/21/22 08:50 Home Meds Home Medications Medication Instructions Recorded Confirmed apixaban 5 mg tablet (Eliquis) 5 mg PO BID 05/27/22 09/10/23 cholecalciferol (vitamin D3) 10 10 mcg PO QAM 05/27/22 09/10/23 mcg (400 unit) tablet (Vitamin D3) cyanocobalamin (vitamin B-12) 500 500 mcg PO QAM 05/27/22 09/10/23 mcg tablet (Vitamin B-12) diltiazem HCl 240 mg capsule,24 240 mg PO QAM 05/27/22 09/10/23 hr,extended release metoprolol succinate 25 mg capsule 50 mg PO QPM 05/27/22 09/10/23 sprinkle, ext. release 24 hr multivitamin 1 tab PO QAM 05/27/22 09/10/23 omega-3 fatty acids 1,500 mg PO DAILY 09/10/23 09/10/23 Previous Rx's Medication Instructions Recorded tadalafil 5 mg tablet (Cialis) 5 mg PO DAILY #90 tabs 08/31/23 Results & Data (ED) Vital Signs Vital Signs - 24 hr 09/10/23 03:00 09/10/23 04:25 09/10/23 05:03 Pulse Rate 68 65 60 Pulse Rate from SpO2 Sensor 66 Respiratory Rate 15 Blood Pressure 147/78 H Blood Pressure Mean 101 Pulse Oximetry 96 Laboratory Data 09/10/23 06:02 09/10/23 06:02 Lab Results 09/09/23 Range/Units 23:31 WBC 7.36 (4.8-10.8) K/ul RBC 4.40 L (4.70-6.10) M/uL Hgb 14.2 (14.0-18.0) g/dl Hct 41.5 L (42.0-52.0) % MCV 94.3 (80.0-100.0) fL MCH 32.3 (25.0-34.0) pg MCHC 34.2 (32.0-36.0) g/dL RDW Std Deviation 41.4 (36.4-46.3) fL RDW Coeff of Dayana 11.9 (11.5-14.5) % Plt Count 172 (130-400) K/uL MPV 9.6 (9.4-12.4) fL Immature Gran % (Auto) 0.1 % Neut % (Auto) 60.4 % Lymph % (Auto) 25.8 % [place] % (Auto) 9.8 % Eos % (Auto) 3.5 % Baso % (Auto) 0.4 % Neut # (Auto) 4.44 (1.40-6.50) K/uL Lymph # (Auto) 1.90 (1.20-3.40) K/uL [place] # (Auto) 0.72 H (0.11-0.59) K/uL Eos # (Auto) 0.26 (0.00-0.50) K/uL Baso # (Auto) 0.03 (0.00-0.20) K/uL Immature Gran # (Auto) 0.01 (0.01-0.20) K/uL Sodium 139 (136-145) mmol/L Potassium 4.1 (3.5-5.1) mmol/L Chloride 107 (98-107) mmol/L Carbon Dioxide 26 (21-32) mmol/L Anion Gap 6 (3-11) BUN 30 H (6-23) mg/dl Creatinine 1.79 H (0.6-1.4) mg/dl Est Cr Clr Drug Dosing 34.0 ml/min Est GFR ( Amer) 40.3 ml/min Est GFR (Non-Af Amer) 34.8 ml/min BUN/Creatinine Ratio 16.8 (10-20) Glucose 109 H (70-99(Fasting)) mg/dl Calcium 8.5 L (8.6-10.3) mg/dl Magnesium 1.8 (1.7-2.4) mg/dl Total Bilirubin 0.3 (0.2-1.0) mg/dl AST 30 (13-39) U/L ALT 23 (7-52) U/L Alkaline Phosphatase 66 (34-104) U/L Troponin I High Sens 6.3 (0-20) pg/ml Total Protein 7.1 (6.0-8.3) gm/dl Albumin 4.1 (3.4-5.0) gm/dl Globulin 3.0 (2.5-4.0) gm/dl Albumin/Globulin Ratio 1.4 (0.9-2) TSH 3.929 (0.300-4.500) uIu/ml Ethyl Alcohol mg/dL < 10.0 (<10.0) mg/dl Administered Medications Amoxicillin/Clavulanate Potassium (Amoxicillin/Clavulanate 875 Mg Tab) 1 tab PO BIDM [facility]; Protocol Stop: 09/20/23 16:59 Last Admin: 09/10/23 17:58 Dose: 1 tab Documented By: MAICO Apixaban (Apixaban 5 Mg Tablet) 5 mg PO BID [facility] Stop: 10/10/23 08:59 Last Admin: 09/10/23 20:03 Dose: 5 mg Documented By: Admin: 09/10/23 10:15 Dose: 5 mg Documented By: VIRGILIO Cyanocobalamin (Cyanocobalamin (B-12) 500 Mcg Tablet) 500 mcg PO QAM [facility] Stop: 10/10/23 08:59 Last Admin: 09/10/23 10:15 Dose: 500 mcg Documented By: VIRGILIO Fluticasone Propionate (Fluticasone Propionate Na Spr 16 Gm Btl) 1 sprays NA BID [facility] Stop: 10/10/23 20:59 Last Admin: 09/10/23 20:03 Dose: 1 sprays Documented By: MERLE Amiodarone HCl/Dextrose (Nexterone / D5w) 360 mg in 200 mls @ 16.667 mls/hr IV .Q12H [facility] Stop: 10/10/23 10:29 Last Admin: 09/11/23 02:04 Dose: 0.5 mg/min, 16.7 mls/hr Documented By: MERLE Co-signed By: NATTY Infusion: 09/11/23 00:49 Dose: Infused Documented By: MERLE Co-signed By: NATTY Admin: 09/10/23 12:50 Dose: 0.5 mg/min, 16.7 mls/hr Documented By: RADHA Co-signed By: FRANCHESKA Metoprolol Succinate (Metoprolol Succ 25mg Ext Rel Tab) 25 mg PO QPM [facility] Stop: 10/10/23 20:59 Last Admin: 09/10/23 20:03 Dose: 25 mg Documented By: MERLE Multivitamins (Multivitamin Tab) 1 tab PO QAM [facility] Stop: 10/10/23 08:59 Last Admin: 09/10/23 10:15 Dose: 1 tab Documented By: VIRGILIO Discontinued Medications Sodium Chloride (Nss) 500 mls @ 999 mls/hr IV .Q31M ONE Stop: 09/10/23 02:00 Last Infusion: 09/10/23 02:17 Dose: Infused Documented By: Admin: 09/10/23 01:39 Dose: 999 mls/hr Documented By: SARANYA Magnesium Sulfate/Dextrose (Magnesium Sulfate / D5w) 1 gm in 100 mls @ 50 mls/hr IV ONE ONE Stop: 09/10/23 04:48 Last Infusion: 09/10/23 05:15 Dose: Infused Documented By: Admin: 09/10/23 03:12 Dose: 50 mls/hr Documented By: SARANYA Amiodarone HCl/Dextrose (Nexterone / D5w) 150 mg in 100 mls @ 600 mls/hr IV NOW STA Stop: 09/10/23 04:30 Last Infusion: 09/10/23 05:25 Dose: Infused Documented By: RAYNA Co-signed By: CYRUS Admin: 09/10/23 05:14 Dose: 600 mls/hr Documented By: RAYNA Co-signed By: TOMY Amiodarone HCl/Dextrose (Nexterone / D5w) 360 mg in 200 mls @ 33.333 mls/hr IV ONE ONE Stop: 09/10/23 10:30 Last Infusion: 09/10/23 12:48 Dose: Infused Documented By: VIRGILIO Co-signed By: FRANCHESKA Admin: 09/10/23 05:26 Dose: 1 mg/min, 33.3 mls/hr Documented By: RAYNA Co-signed By: CYRUS Potassium Chloride (Potassium Chloride Crtab 20 Meq Tabcr) 40 meq PO NOW STA Stop: 09/10/23 07:16 Last Admin: 09/10/23 07:50 Dose: 40 meq Documented By: [place] Discharge Plan Visit Data Chief Complaint: Cardiac Assessment Stated Complaint: ?A FIB,SOB,BRIEF LOSS OF SIGHT ED Provider: Josefina Henderson Discharge Problem: Ventricular tachycardia, Near syncope Patient Disposition: Admitted As Inpatient Discharge Instructions Interventions: ED Discharge Assessment Last Done: 09/10/23 08:03
[2023-09-10 00:46] LABS: Basophils # (auto) 0.03 K/uL (0.00-0.20); Basophils % (auto) 0.4 %; Eosinophils # (auto) 0.26 K/uL (0.00-0.50); Eosinophils % (auto) 3.5 %; Hematocrit (blood only) 41.5 % (42.0-52.0); Hemoglobin 14.2 g/dl (14.0-18.0); Immature Granulocytes # (auto) 0.01 K/uL (0.01-0.20); Immature Granulocytes % (auto) 0.1 %; Lymphocytes % (auto) 25.8 %; Mean Corpuscular Hemoglobin 32.3 pg (25.0-34.0); Mean Corpuscular Hgb Conc 34.2 g/dL (32.0-36.0); Mean Corpuscular Volume 94.3 fL (80.0-100.0); Mean Platelet Volume 9.6 fL (9.4-12.4); Monocytes # (auto) 0.72 K/uL (0.11-0.59); Monocytes % (auto) 9.8 %; Neutrophils # (auto) 4.44 K/uL (1.40-6.50); Neutrophils % (auto) 60.4 %; Platelet Count 172 K/uL (130-400); RDW Coefficient of Variation 11.9 % (11.5-14.5); RDW Standard Deviation 41.4 fL (36.4-46.3); White Blood Count 7.36 K/ul (4.8-10.8)
[2023-09-10 00:48] LABS: Albumin Globulin Ratio 1.4 (0.9-2); Albumin Level 4.1 gm/dl (3.4-5.0); BUN Creatinine Ratio 16.8 (10-20); Bilirubin,Total 0.3 mg/dl (0.2-1.0); Calcium 8.5 mg/dl (8.6-10.3); Est GFR (African American) 40.3 ml/min; Est GFR (Non-African American) 34.8 ml/min; Magnesium 1.8 mg/dl (1.7-2.4); Potassium 4.1 mmol/L (3.5-5.1); Total Protein 7.1 gm/dl (6.0-8.3)
[2023-09-10 01:04] LABS: Thyroid Stimulating Hormone 3.929 uIu/ml (0.300-4.500)
[2023-09-10] MEDS: SODIUM CHLORIDE 0.9% 500 ML IV ONE (01:39)
[2023-09-10 02:00] LABS: Troponin I High Sensitivity 6.3 pg/ml (0-20)
[2023-09-10] MEDS: MAGNESIUM SULFATE / D5W 1 GM/100 ML BAG IV ONE (03:12)
--- NOTE | 2023-09-10 04:14 | History & Physical Report ---
Date of Service September 10, 2023 Assessment & Plan (1) Paroxysmal VT: Plan: ? 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 Patient may need to revert back to Flomax. May benefit from inpatient [facility] urologist follow-up. Follow UA, monitor creatinine response to fluid bolus administered at the ER DVT prophylaxis. Eliquis Full code Patient grandson requesting updates from providers. (Mr. Lloyd Morataya, [facility] RN giacomo castro, contact #[phone]) He would like consulting scroll shear operator to communicate with patient's scroll shear operator (Dr. Shaw of [facility], [phone]) and transfer to [facility] if deemed reasonable. Total critical care time was 45 minutes. Text document was generated using 9Cookies voice recognition software. It may contain grammatical or spelling errors. Kindly contact undersigned for clarification of any documentation item in question. History of Present Illness Chief Complaint: Dizziness Primary Care Provider: Crow Lenz MD History obtained from patient, family, and records. Medical history significant for SSS status post PPM, atrial flutter status post ablation on Eliquis, hypertension, CRI (baseline creatinine 1.4), GERD, BPH, sensorineural hearing loss status post cochlear implantation, past tobacco abuse. Patient is a resident of [place], [place] who has been staying at [place] close to [facility] with family the last few days. Patient seen at [facility] Urology office 2 weeks ago for BPH symptoms. Patient started on Cialis because Flomax not working well as per note. While driving to [place] few days ago, patient felt dizziness described as lightheadedness. [place] like he was going to pass out. Transient chest discomfort symptoms. He had to stop car while driving. [place] like an A-fib episode as per patient. Patient later on received a call from his [place] scroll shear operator's office that day. 'Fast heartbeat episode' picked up on remote ICD monitoring. He was told to take extra metoprolol tablet. Last night, patient experienced recurrent episode more pronounced. Transient headache with bilateral blurred vision symptoms. Chest discomfort with some SOB. Episode lasting less than a minute as per patient. Patient compliant with home meds. Denies unusual stress. But thinks he might have been exerting a little more effort than usual for hunting trip. Patient brought to ER for evaluation. Paroxysmal VT episode lasting 20 seconds upon ICD interrogation as per [place] emergency response technician. 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 Allergies Allergy/AdvReac Type Severity Reaction Status Date / Time No Known Allergies Allergy Verified 06/21/22 08:50 Home Medications Medication Instructions Recorded Confirmed Type apixaban 5 mg tablet (Eliquis) 5 mg PO BID 05/27/22 09/10/23 History cholecalciferol (vitamin D3) 10 10 mcg PO QAM 05/27/22 09/10/23 History mcg (400 unit) tablet (Vitamin D3) cyanocobalamin (vitamin B-12) 500 500 mcg PO QAM 05/27/22 09/10/23 History mcg tablet (Vitamin B-12) diltiazem HCl 240 mg capsule,24 240 mg PO QAM 05/27/22 09/10/23 History hr,extended release metoprolol succinate 25 mg capsule 50 mg PO QPM 05/27/22 09/10/23 History sprinkle, ext. release 24 hr multivitamin 1 tab PO QAM 05/27/22 09/10/23 History tadalafil 5 mg tablet (Cialis) 5 mg PO DAILY #90 tabs 08/31/23 09/10/23 Rx omega-3 fatty acids 1,500 mg PO DAILY 09/10/23 09/10/23 History Past Med/Surg History Medical History (Updated 09/10/23 @ 08:23 by Corby Cesar MD) BPH with obstruction/lower urinary tract symptoms Pacemaker Implanted 2013, follows with Dr. Ivy ([place]) Atrial fibrillation Erectile dysfunction GERD (gastroesophageal reflux disease) Hypertension Gastric ulcer hx Urinary urgency Enlarged prostate without lower urinary tract symptoms (luts) Arthritis Surgical History (Updated 06/22/22 @ 08:26 by Mamadou Manning PA-C) History of esophagogastroduodenoscopy (EGD) History of cochlear implant left History of cardiac radiofrequency ablation 2017 History of permanent cardiac pacemaker placement 2013 History of colonoscopy History of cholecystectomy Family History Father Throat cancer Social History Smoking Status: Never smoker Second Hand Exposure: No; Do You Dip or Chew Tobacco: No; Hx Alcohol Use: No Hx Substance Use: No Preferred Language: Wolof Communication Ability: Effective Document Imaging Specialist Required: No Beliefs That Will Affect Care: None Current Living Situation: Spouse Feels Safe at Home: Yes Assistive Devices: Glasses and Walker Review of Systems Review of Systems: As per HPI, all other systems reviewed and negative Physical Exam Physical Exam: GENERAL: Comfortable, pleasant, slightly hard of hearing, no respiratory distress SKIN: Normal color, warm HEENT: Bespectacled, pink palpebral conjunctivae, no ptosis, dry buccal mucosa NECK : Supple, no tenderness CHEST : CTA, no tenderness HEART : RRR, no obvious murmurs ABDOMEN: Some distention, nontender EXTREMITIES : No LE swelling/tenderness, no other conspicuous deformities noted NEUROLOGIC : Coherent, no facial asymmetry, slight hard of hearing, no other gross focality Results & Data Results & Data Vital Signs (Past 12 Hours) Vital Signs Temp Pulse Pulse Resp BP BP Pulse Ox 09/10/23 02:18 60 20 128/76 95 09/10/23 00:30 62 23 95 09/10/23 00:30 137/79 09/10/23 00:20 65 22 94 09/10/23 00:18 66 18 94 09/10/23 00:18 133/74 09/10/23 00:10 73 30 H 93 09/10/23 00:00 66 25 H 94 09/09/23 23:52 68 20 94 09/09/23 23:50 68 09/09/23 23:47 71 20 94 09/09/23 23:47 68 20 149/93 H 95 09/09/23 23:47 95 09/09/23 23:38 36.7 C 71 18 174/84 H 96 O2 Del Method 09/10/23 02:18 Room Air 09/10/23 00:30 09/10/23 00:30 09/10/23 00:20 09/10/23 00:18 09/10/23 00:18 09/10/23 00:10 09/10/23 00:00 09/09/23 23:52 09/09/23 23:50 09/09/23 23:47 09/09/23 23:47 Room Air 09/09/23 23:47 Room Air 09/09/23 23:38 Room Air Laboratory Results Laboratory Results WBC 7.36 K/ul (4.8-10.8) 09/09/23 23:31 RBC 4.40 M/uL (4.70-6.10) L 09/09/23 23:31 Hgb 14.2 g/dl (14.0-18.0) 09/09/23 23:31 Hct 41.5 % (42.0-52.0) L 09/09/23 23:31 MCV 94.3 fL (80.0-100.0) 09/09/23 23:31 MCH 32.3 pg (25.0-34.0) 09/09/23 23:31 MCHC 34.2 g/dL (32.0-36.0) 09/09/23 23:31 RDW Std Deviation 41.4 fL (36.4-46.3) 09/09/23 23:31 RDW Coeff of Dayana 11.9 % (11.5-14.5) 09/09/23 23:31 Plt Count 172 K/uL (130-400) 09/09/23 23:31 MPV 9.6 fL (9.4-12.4) 09/09/23 23:31 Immature Gran % (Auto) 0.1 % 09/09/23 23:31 Neut % (Auto) 60.4 % 09/09/23 23:31 Lymph % (Auto) 25.8 % 09/09/23 23:31 [place] % (Auto) 9.8 % 09/09/23 23:31 Eos % (Auto) 3.5 % 09/09/23 23:31 Baso % (Auto) 0.4 % 09/09/23 23:31 Neut # (Auto) 4.44 K/uL (1.40-6.50) 09/09/23 23:31 Lymph # (Auto) 1.90 K/uL (1.20-3.40) 09/09/23 23:31 [place] # (Auto) 0.72 K/uL (0.11-0.59) H 09/09/23 23:31 Eos # (Auto) 0.26 K/uL (0.00-0.50) 09/09/23 23:31 Baso # (Auto) 0.03 K/uL (0.00-0.20) 09/09/23 23:31 Immature Gran # (Auto) 0.01 K/uL (0.01-0.20) 09/09/23 23:31 Sodium 139 mmol/L (136-145) 09/09/23 23:31 Potassium 4.1 mmol/L (3.5-5.1) 09/09/23 23:31 Chloride 107 mmol/L (98-107) 09/09/23 23:31 Carbon Dioxide 26 mmol/L (21-32) 09/09/23 23:31 Anion Gap 6 (3-11) 09/09/23 23:31 BUN 30 mg/dl (6-23) H 09/09/23 23:31 Creatinine 1.79 mg/dl (0.6-1.4) H 09/09/23 23:31 Est Cr Clr Drug Dosing 34.0 ml/min 09/09/23 23:31 Est GFR ( Amer) 40.3 ml/min 09/09/23 23:31 Est GFR (Non-Af Amer) 34.8 ml/min 09/09/23 23:31 BUN/Creatinine Ratio 16.8 (10-20) 09/09/23 23:31 Glucose 109 mg/dl (70-99(Fasting)) H 09/09/23 23:31 Calcium 8.5 mg/dl (8.6-10.3) L 09/09/23 23:31 Magnesium 1.8 mg/dl (1.7-2.4) 09/09/23 23:31 Total Bilirubin 0.3 mg/dl (0.2-1.0) 09/09/23 23:31 AST 30 U/L (13-39) 09/09/23 23: ALT 23 U/L (7-52) 09/09/23 23: Alkaline Phosphatase 66 U/L (34-104) 09/09/23 23: Troponin I High Sens 6.3 pg/ml (0-20) 09/09/23 23: Total Protein 7.1 gm/dl (6.0-8.3) 09/09/23: Albumin 4.1 gm/dl (3.4-5.0) 09/09/23: Globulin 3.0 gm/dl (2.5-4.0) 09/09/23 23: Albumin/Globulin Ratio 1.4 (0.9-2) 09/09/23 23: TSH 3.929 uIu/ml (0.300-4.500) 09/09/23 23: Ethyl Alcohol mg/dL < 10.0 mg/dl (<10.0) 09/09/23 23:31 Diagnostic Findings Chest x-ray as per my interpretation: Cardiomegaly, congestion EKG as per my interpretation : Rate 65, NSR, normal axis, no ischemia
[2023-09-10] MEDS ORDERED: STAT IV Infusion **Titration per Protocol STA (04:21)
[2023-09-10] MEDS ORDERED: 0.2 MICRON FILTER SET 1 EACH IV STA (04:21)
[2023-09-10] MEDS ORDERED: AMIODARONE IV BOLUS & DRIP IV STA (04:21)
[2023-09-10] MEDS: AMIODARONE / D5W 150 MG/100 ML BAG IV STA (05:14)
[2023-09-10] MEDS: AMIODARONE / D5W 360 MG/200 ML BAG IV ONE (05:26)
--- NOTE | 2023-09-10 05:36 | CT Scan Report ---
Exam(s): CT HEAD Without Contrast EXAM: CT Head Without Intravenous Contrast CLINICAL HISTORY: Reason for exam: sewell, eliquis. TECHNIQUE: Axial computed tomography images of the head/brain without intravenous contrast. CTDI is 38.95 mGy and DLP is 625.8 mGy-cm. Automated exposure control was utilized for the study. A dose lowering technique was utilized adhering to the principles of ALARA. COMPARISON: No relevant prior studies available. FINDINGS: Brain: Unremarkable. No hemorrhage. No significant white matter disease. No edema. Ventricles: Unremarkable. No ventriculomegaly. Bones/joints: Unremarkable. No acute fracture. Soft tissues: Unremarkable. Sinuses: Chronic sphenoid and ethmoid sinusitis. No acute sinusitis. Mastoid air cells: Status post left mastoidectomy with cochlear implant. No mastoid effusion. IMPRESSION: No evidence of acute intracranial pathology. Electronically signed by: Lorena Burgos MD 09/10/23 05:35 AM
[2023-09-10] MEDS ORDERED: PROMETHAZINE HCL 6.25 MG in SODIUM CHLORIDE 0.9% 50 ML IV PRN (05:49)
[2023-09-10] MEDS ORDERED: traMADol HCL 50 MG TABLET PO PRN (05:49)
[2023-09-10] MEDS ORDERED: ACETAMINOPHEN 325 MG TAB PO PRN ×2 (05:52→08:21)
[2023-09-10 06:27] LABS: Basophils # (auto) 0.02 K/uL (0.00-0.20); Basophils % (auto) 0.3 %; Eosinophils # (auto) 0.27 K/uL (0.00-0.50); Hematocrit (blood only) 39.5 % (42.0-52.0); Hemoglobin 13.6 g/dl (14.0-18.0); Immature Granulocytes # (auto) 0.06 K/uL (0.01-0.20); Immature Granulocytes % (auto) 0.9 %; Lymphocytes # (auto) 2.23 K/uL (1.20-3.40); Lymphocytes % (auto) 32.8 %; Mean Corpuscular Hgb Conc 34.4 g/dL (32.0-36.0); Mean Corpuscular Volume 92.9 fL (80.0-100.0); Mean Platelet Volume 9.6 fL (9.4-12.4); Monocytes # (auto) 0.67 K/uL (0.11-0.59); Monocytes % (auto) 9.9 %; Neutrophils # (auto) 3.54 K/uL (1.40-6.50); Neutrophils % (auto) 52.1 %; Platelet Count 154 K/uL (130-400); RDW Coefficient of Variation 11.9 % (11.5-14.5); Red Blood Count 4.25 M/uL (4.70-6.10); White Blood Count 6.79 K/ul (4.8-10.8)
[2023-09-10 06:42] LABS: BUN Creatinine Ratio 17.4 (10-20); Calcium 7.9 mg/dl (8.6-10.3); Creatinine Clr Calc Pharmacy 40.8 ml/min; Est GFR (African American) 50.3 ml/min; Est GFR (Non-African American) 43.4 ml/min; Potassium 3.7 mmol/L (3.5-5.1)
[2023-09-10] MEDS: POTASSIUM CHLORIDE CRTAB 20 MEQ TABCR PO STA (07:50)
--- NOTE | 2023-09-10 07:52 | XRay Report ---
XR chest 1V portable HISTORY: near syncope COMPARISON: Chest 06/03/2022. FINDINGS: There are low lung volumes. The cardiac silhouette is mildly enlarged. No pneumothorax. No pleural effusions. Left-sided dual-chamber pacemaker. There is mild central pulmonary vascular conges tion without overt edema. Left basilar linear densities favor subsegmental atelectasis. Prior cholecy stectomy. IMPRESSION: Cardiomegaly and mild pulmonary vascular congestion. ACT 112: Negative or not required by law. Electronically signed by: Ned Valles M.D. 09/10/2023 7:50 AM
--- NOTE | 2023-09-10 09:07 | Cardiology Consultation ---
Date of Consultation September 10, 2023 Assessment & Plan (1) Non-sustained ventricular tachycardia: (2) Paroxysmal atrial flutter: (3) History of cardiac radiofrequency ablation: (4) History of sick sinus syndrome: (5) Presence of permanent cardiac pacemaker: Plan Assessment: 82 year old male presents after brief near [place]. Interrogation of PPM demonstrates a run of Non-sustained VT that correlates to the time of the patient's event. Requesting cardiology evaluation. Plan: 1. Non-sustained VT -Episode noted to correlate with patient's reported time of near-syncopal event. 22 second run of NSVT with rates of 192bpm. PPM interrogation is with paper chart. -Patient is currently on toprol xl and reports missing one dose in the last 48 hours, which he had taken within 12 hours of normal scheduled time. -Obtain echocardiogram to assess overall structure and function to further assess etiology -labs are within normal limits. -No recent acute illness symptoms -Troponin negative. will continue to trend. -Discussed with Dr. Palomo and ED physician with plan to start Amiodarone gtt today for 24 hours and then transition to PO Amiodarone 200mg PO Daily. -Review of prior records as noted in HPI does list hx of prior ablation for AVNRT and A-flutter, but no documentation is found to support any prior VT. -Reassess patient in the AM and based on exam, discuss response to Amio vs further consideration for ischemic work up. Would like to see response to 24 hours of Amio first. 2. paroxysmal A-flutter 3. History of cardiac RF ablation 4. History of SSS 5. presence of PPM s/t SSS -REview of telemetry does not sure any further ectopy. No evidence of A-fib or flutter. -REview of device interrogation shows less than 1% AF/AT burden -Continue on Toprol xl -Continue on Eliquis 5mg PO BID. Case has been discussed with Dr. Palomo. Further recommendations regarding plan of care as per his assessment. I spent a total of 40 minutes on the date of service in preparation, delivery, documentation of the care provided to the patient excluding any time spent in the performance of separately billed services. JUAN Paniagua [facility] Cardiology [facility] Supervising Physician Co-Signing Physician Notes I have reviewed the advance practitioner's documentation, and I agree with, and take responsibility for the plan of care. I have personally performed a history and physical examination on the patient. 82-year-old male with a past medical history of paroxysmal atrial fibrillation, tachybradycardia syndrome status post pacemaker, follows up with cardiology in [place] presented yesterday to the [facility] after having episode of presyncope. Patient describes his episode last night while camping getting lightheaded dizzy feeling mildly short of breath along with presyncope but did not pass out. Episode lasted for few minutes and resolved on its own but afterwards patient was significantly tired. His friends urged him to come to the ED. His device was interrogated and it showed 20 seconds of nonsustained ventricular tachycardia. Patient currently doing well. He denies chest pain, dyspnea, or syncope. His EKG showed sinus rhythm with no acute ischemic changes. Amiodarone drip was started to prevent further episodes of nonsustained ventricular tachycardia as patient was very symptomatic from this episode. Patient states he was unable to tolerate higher doses of metoprolol in the past. His left ventricular systolic function on echocardiogram was preserved. Unclear etiology of his nonsustained VT. Electrolytes mostly unremarkable on admission. Keep potassium greater than 4 and magnesium greater than 2. Likely will need an ischemic evaluation with a cath versus Lexiscan nuclear stress test. Will trend troponins for now as only one troponin has been done so far and it was negative. I spent a total of 60 minutes on the date of service in preparation, delivery, and documentation of the care provided to this patient, excluding any time spent in the performance of separately billed service History of Present Illness Reason for Consultation: near syncope. Non-sustained VT Requesting Physician: Hetal melendrez Attending Physician: Sathya Hinson MD History of Present Illness HPI: Patient is an 82 year old male with PMHx as stated below that presented to the ED after an abrupt episode of shortness of breath, head pressure facial flushing, blurry vision which lead into tunnel vision and near syncope. He reports that he had been sitting next to a donna at camp when it had happened and remembers grabbing his arm thinking "Im going out". Patient did not lose consciousness and episode had resolved within a minute, but had left lingering exhaustion, dizziness and just not feeling right prompting him to present. patient denies any recent acute cold of flu-like symptoms The patient has had these episodes before and had a pacemaker placed. Following this episode, the patient felt very dizzy, fatigued and lightheaded for period of time. patient is resting comfortably in bed upon my examination. Friend's have arrived at bedside. Of note, patient is very hard of hearing. He wears a hearing aide in the right ear and has a Cochlear implant in the left which until his friend's arrived, he did not have the device. He denies any recurrence of symptoms. Denies any chest pain, pressure or palpitations. He has been up ambulating to the restroom without complaint. Patient does not follow with [facility] cardiology and so there are very limited records available for review at this time. PPM device interrogation obtained which demonstrates a episode of Non-sustained VT lasting 22 seconds with a rate of 192bpm. EKG on admission NSR Rate 66bpm Chest xray: IMPRESSION: Cardiomegaly and mild pulmonary vascular congestion. Device: [employer] Accolade MRI Primary [place] Manager: Dr. Carlito Ivy and Dr. Shaw (EP) from [facility]. 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 Non-obstructive? Unsure of time frame. Allergies Allergy/AdvReac Type Severity Reaction Status Date / Time No Known Allergies Allergy Verified 06/21/22 08:50 Home Medications Medication Instructions Recorded Confirmed Type apixaban 5 mg tablet (Eliquis) 5 mg PO BID 05/27/22 09/10/23 History cholecalciferol (vitamin D3) 10 10 mcg PO QAM 05/27/22 09/10/23 History mcg (400 unit) tablet (Vitamin D3) cyanocobalamin (vitamin B-12) 500 500 mcg PO QAM 05/27/22 09/10/23 History mcg tablet (Vitamin B-12) diltiazem HCl 240 mg capsule,24 240 mg PO QAM 05/27/22 09/10/23 History hr,extended release metoprolol succinate 25 mg capsule 50 mg PO QPM 05/27/22 09/10/23 History sprinkle, ext. release 24 hr multivitamin 1 tab PO QAM 05/27/22 09/10/23 History tadalafil 5 mg tablet (Cialis) 5 mg PO DAILY #90 tabs 08/31/23 09/10/23 Rx omega-3 fatty acids 1,500 mg PO DAILY 09/10/23 09/10/23 History Patient History Medical History (Updated 09/10/23 @ 16:48 by JUAN Paniagua) BPH with obstruction/lower urinary tract symptoms Pacemaker Implanted 2013, follows with Dr. Ivy ([place]) Atrial fibrillation Erectile dysfunction GERD (gastroesophageal reflux disease) Hypertension Gastric ulcer hx Urinary urgency Enlarged prostate without lower urinary tract symptoms (luts) Arthritis Surgical History (Updated 09/10/23 @ 16:48 by JUAN Paniagua) History of esophagogastroduodenoscopy (EGD) History of cochlear implant left History of cardiac radiofrequency ablation 2017 History of permanent cardiac pacemaker placement 2013 History of colonoscopy History of cholecystectomy Family History Father Throat cancer Social History Smoking Status: Never smoker Second Hand Exposure: No; Do You Dip or Chew Tobacco: No; Hx Alcohol Use: No Hx Substance Use: No Preferred Language: Albanian Communication Ability: Effective Knit Goods Washer Required: No Beliefs That Will Affect Care: None Current Living Situation: Spouse Feels Safe at Home: Yes Assistive Devices: Glasses and Walker Review of Systems Review of Systems: All systems reviewed & are unremarkable except as noted in HPI & below Physical Exam Constitutional: well developed and well nourished; no acute distress and not ill appearing Neck: normal visual inspection and trachea midline Respiratory: normal respiratory effort; no respiratory distress Auscultation: lungs clear to auscultation bilaterally Cardiovascular: Rate/Rhythm: regular rate and regular rhythm Heart Sounds: normal S1 and normal S2; no murmur Vessels: dorsalis pedis pulses present; no JVD Extremities: no edema Skin: no rashes, warm and dry Psychiatric: A+Ox3, euthymic affect Results & Data Vital Signs (Past 12 Hours) Vital Signs Temp Pulse Pulse Resp BP BP Pulse Ox 09/10/23 09:02 09/10/23 09:02 36.7 C 66 20 126/72 96 09/10/23 07:22 61 09/10/23 06:00 66 18 130/66 96 09/10/23 05:03 60 09/10/23 04:25 65 09/10/23 03:00 68 15 147/78 H 96 09/10/23 02:18 60 20 128/76 95 09/10/23 02:00 60 19 128/76 93 09/10/23 01:39 125/88 09/10/23 01:00 62 18 131/84 95 09/10/23 00:30 62 23 95 09/10/23 00:30 137/79 09/10/23 00:20 65 22 94 09/10/23 00:18 66 18 94 09/10/23 00:18 133/74 09/10/23 00:10 73 30 H 93 09/10/23 00:00 66 25 H 94 09/09/23 23:52 68 20 94 09/09/23 23:50 68 09/09/23 23:47 71 20 94 09/09/23 23:47 68 20 149/93 H 95 09/09/23 23:47 95 09/09/23 23:38 36.7 C 71 18 174/84 H 96 Pulse Ox O2 Del Method O2 Del Method 09/10/23 09:02 96 Room Air 09/10/23 09:02 Room Air 09/10/23 07:22 09/10/23 06:00 Room Air 09/10/23 05:03 09/10/23 04:25 09/10/23 03:00 09/10/23 02:18 Room Air 09/10/23 02:00 09/10/23 01:39 09/10/23 01:00 09/10/23 00:30 09/10/23 00:30 09/10/23 00:20 09/10/23 00:18 09/10/23 00:18 09/10/23 00:10 09/10/23 00:00 09/09/23 23:52 09/09/23 23:50 09/09/23 23:47 09/09/23 23:47 Room Air 09/09/23 23:47 Room Air 09/09/23 23:38 Room Air Laboratory Results Cardiac Enzymes 09/09/23 09/10/23 Range/Units 23:31 14:55 AST 30 (13-39) U/L Troponin I High Sens 6.3 5.8 (0-20) pg/ml CBC 09/09/23 09/10/23 Range/Units 23:31 06:02 WBC 7.36 6.79 (4.8-10.8) K/ul RBC 4.40 L 4.25 L (4.70-6.10) M/uL Hgb 14.2 13.6 L (14.0-18.0) g/dl Hct 41.5 L 39.5 L (42.0-52.0) % Plt Count 172 154 (130-400) K/uL Neut # (Auto) 4.44 3.54 (1.40-6.50) K/uL Lymph # (Auto) 1.90 2.23 (1.20-3.40) K/uL [place] # (Auto) 0.72 H 0.67 H (0.11-0.59) K/uL Eos # (Auto) 0.26 0.27 (0.00-0.50) K/uL Baso # (Auto) 0.03 0.02 (0.00-0.20) K/uL Comprehensive Metabolic Panel 09/09/23 09/10/23 Range/Units 23:31 06:02 Sodium 139 140 (136-145) mmol/L Potassium 4.1 3.7 (3.5-5.1) mmol/L Chloride 107 109 H (98-107) mmol/L Carbon Dioxide 26 24 (21-32) mmol/L BUN 30 H 26 H (6-23) mg/dl Creatinine 1.79 H 1.49 H D (0.6-1.4) mg/dl Glucose 109 H 116 H (70-99(Fasting)) mg/dl Calcium 8.5 L 7.9 L (8.6-10.3) mg/dl AST 30 (13-39) U/L ALT 23 (7-52) U/L Alkaline Phosphatase 66 (34-104) U/L Total Protein 7.1 (6.0-8.3) gm/dl Albumin 4.1 (3.4-5.0) gm/dl Intake and Output 09/10/23 09/10/23 09/10/23 06:59 14:59 22:59 Intake Total 700 / 700 800 / 800 Balance 700 / 700 800 / 800 Intake: IV 700 / 700 200 / 200 Amiodarone / D5w 150 mg In 100 100 / 100 ml @ 600 mls/hr IV NOW STA Rx#: [id number] Amiodarone / D5w 360 mg In 200 200 / 200 ml @ 1 MG/MIN 33.333 mls/hr IV ONE ONE Rx#:[id number] Magnesium Sulfate / D5w 1 gm In 100 / 100 100 ml @ 50 mls/hr IV ONE ONE Rx#:[id number] Sodium Chloride 0.9% 500 ml @ 500 / 500 999 mls/hr IV .Q31M ONE Rx#: [id number] Oral 500 / 500 Other 100 / 100 Other: Other Intake Source IV Weight 83 kg Weight Measurement Method Chair Scale
[2023-09-10] MEDS: CYANOCOBALAMIN (B-12) 500 MCG TABLET PO SCH (10:15)
[2023-09-10] MEDS: MULTIVITAMIN TAB PO SCH (10:15)
[2023-09-10] MEDS: APIXABAN 5 MG TABLET PO SCH (10:15)
[2023-09-10 12:01] LABS: Appearance Urine Clear (Clear); Bacteria Urine Automated None Seen (None Seen); Bilirubin Urine Negative (Negative); Blood Urine Negative (Negative); Cast Urine Automated 0-2 /lpf (0-2); Color Urine Yellow; Epithelial Cell Urine Auto 0-2 /hpf (0-2); Glucose Urine UA Negative (Negative); Ketones Urine Negative (Negative); Leukocyte Esterase Urine Trace (Negative); Nitrite Urine Negative (Negative); Protein Urine Negative (Negative); RBC Urine Automated 0-2 /hpf (0-2); Specific Gravity Urine 1.009 (1.000-1.030); Urobilinogen Urine Negative (Negative); WBC Urine Automated 0-5 /hpf (0-5); pH Urine 5.5 (4.5-7.5)
[2023-09-10] MEDS: AMIODARONE / D5W 360 MG/200 ML BAG IV SCH (12:50)
--- NOTE | 2023-09-10 14:07 | Communication Note ---
Date of Service: September 10, 2023 Patient seen and examined at bedside Comfortable, good spirits Denies recurrence of chest pain, palpitations, dizziness No shortness of breath Has been having nasal congestion, nasal drainage with occasional cough for the past few weeks No other new symptoms Vital signs reviewed Positive mild frontal sinus tenderness Clear bases bilaterally Heart regular rhythm no murmurs No leg edema All labs are reviewed Imaging reviewed Episode of ventricular tachycardia History of sick sinus syndrome status post pacemaker History of atrial flutter on Eliquis Currently on amiodarone IV Cardiology service consulted, awaiting further recommendations Chronic sinusitis Start Augmentin, Flonase twice daily Other diagnosis and plan per Dr. Richard's notes Sathya Hinson MD
[2023-09-10] MEDS: AMOXICILLIN/CLAVULANATE 875 MG TAB PO SCH (17:58)
[2023-09-10] MEDS: FLUTICASONE PROPIONATE NA SPR 16 GM BTL SCH (20:03)
[2023-09-10] MEDS: METOPROLOL SUCC 25MG EXT REL TAB PO SCH (20:03)
--- NOTE | 2023-09-10 22:52 | Electrocardiogram Report ---
Test Reason : Blood Pressure : / mmHG Vent. Rate : 066 BPM Atrial Rate : 066 BPM P-R Int : 166 ms QRS Dur : 084 ms QT Int : 372 ms P-R-T Axes : 040 016 019 degrees QTc Int : 389 ms Normal sinus rhythm Normal ECG When compared with ECG of 03-JUN-2022 12:40, Sinus rhythm has replaced Electronic atrial pacemaker Confirmed by Bolivar Callahan ([id number]) on 09/10/2023 10:52:23 PM Referred By: REFERRED SELF Confirmed By:Bolivar Callahan
--- NOTE | 2023-09-11 06:49 | Communication Note ---
Date of Service: September 11, 2023 640 AM Transient bradycardia heart rate 20s as per RN. Patient in deep sleep during event as per RN. Pacemaker did not pace as per RN AP Transient bradycardia Paroxysmal VT on amio infusion History of SSS status post PPM Hold amiodarone for now.
[2023-09-11 08:00] LABS: Basophils # (auto) 0.02 K/uL (0.00-0.20); Basophils % (auto) 0.3 %; Eosinophils % (auto) 3.8 %; Hematocrit (blood only) 42.4 % (42.0-52.0); Hemoglobin 14.4 g/dl (14.0-18.0); Immature Granulocytes # (auto) 0.02 K/uL (0.01-0.20); Immature Granulocytes % (auto) 0.3 %; Lymphocytes # (auto) 2.29 K/uL (1.20-3.40); Mean Corpuscular Hemoglobin 31.5 pg (25.0-34.0); Mean Corpuscular Volume 92.8 fL (80.0-100.0); Mean Platelet Volume 9.2 fL (9.4-12.4); Monocytes # (auto) 0.68 K/uL (0.11-0.59); Monocytes % (auto) 8.6 %; Neutrophils # (auto) 4.59 K/uL (1.40-6.50); Platelet Count 159 K/uL (130-400); RDW Coefficient of Variation 11.9 % (11.5-14.5); RDW Standard Deviation 40.4 fL (36.4-46.3); Red Blood Count 4.57 M/uL (4.70-6.10)
[2023-09-11 08:16] LABS: Calcium 8.3 mg/dl (8.6-10.3); Creatinine Clr Calc Pharmacy 35.8 ml/min; Est GFR (African American) 43.2 ml/min; Est GFR (Non-African American) 37.3 ml/min; Magnesium 1.8 mg/dl (1.7-2.4); Potassium 4.2 mmol/L (3.5-5.1)
[2023-09-11] MEDS: ADVANCED PROBIOTIC 625 MG CAPSULE PO SCH (08:43)
--- NOTE | 2023-09-11 16:19 | Cardiology Progress Note ---
Date of Service September 11, 2023 Assessment & Plan (1) Non-sustained ventricular tachycardia: (2) Paroxysmal atrial flutter: (3) History of cardiac radiofrequency ablation: (4) History of sick sinus syndrome: (5) Presence of permanent cardiac pacemaker: Plan Assessment: 82 year old male presents after [place] Interrogation of PPM demonstrates a run of Non-sustained VT that correlates to the time of the patient's event. Requesting cardiology evaluation. Plan: 1. Non-sustained VT -Episode noted to correlate with patient's reported time of near-syncopal event. 22 second run of NSVT with rates of 192bpm. PPM interrogation is with paper chart. -Patient is currently on toprol xl and reports missing one dose in the last 48 hours, which he had taken within 12 hours of normal scheduled time. -Obtain echocardiogram to assess overall structure and function to further assess etiology -labs are within normal limits. -No recent acute illness symptoms -Troponin negative. will continue to trend. -Discussed with Dr. Palomo and ED physician with plan to start Amiodarone gtt today for 24 hours and then transition to PO Amiodarone 200mg PO Daily. -Review of prior records as noted in HPI does list hx of prior ablation for AVNRT and A-flutter, but no documentation is found to support any prior VT. -Reassess patient in the AM and based on exam, discuss response to Amio vs further consideration for ischemic work up. Would like to see response to 24 hours of Amio first. 2. paroxysmal A-flutter 3. History of cardiac RF ablation 4. History of SSS 5. presence of PPM s/t SSS -REview of telemetry does not sure any further ectopy. No evidence of A-fib or flutter. -REview of device interrogation shows less than 1% AF/AT burden -Continue on Toprol xl -Continue on Eliquis 5mg PO BID. 09/11/2023 Patient asymptomatic overnight no further arrhythmias. Pacemaker interrogation reviewed in detail. Findings reflect episode of extended ventricular tachycardia with rapid rate, correlating with patient's symptoms of near syncope Amiodarone load IV complete Will transition to oral amiodarone 200 mg twice per day Discussed evaluation further would recommend ischemic evaluation and will proceed with diagnostic coronary angiography tomorrow. Eliquis on hold Patient agreeable IV fluids overnight BMP in a.m. N.p.o. after midnight I spent a total of 30 minutes on the date of service in preparation, delivery, documentation of the care provided to the patient excluding any time spent in the performance of separately billed services. Admission and Anticipated Discharge Date Admission Date: September 10, 2023 Subjective Patient was seen and examined, chart, medications, telemetry reviewed. Overall feels improved this morning no further dizziness lightness syncope or near syncope. No chest pains no shortness of breath No arrhythmias on telemetry No fevers chills unexplained infection Review of Systems Review of Systems: All systems reviewed & are unremarkable except as noted in Subjective Physical Exam Constitutional: WD/WN, vitals as above Eyes: PERRL, conjunctivae normal, anicteric sclerae ENMT: external ear and nose normal, oropharynx normal Neck: trachea midline, no thyromegaly Respiratory: normal respiratory effort, lungs clear to auscultation Cardiovascular: RRR, no murmur, no edema Heart Sounds: no gallop Vessels: femoral pulses present and radial pulses present Gastrointestinal (Abdomen): normal bowel sounds, soft, nontender, no hepatosplenomegaly Results & Data Vital Signs (Past 12 Hours) Vital Signs Temp Pulse Pulse Resp BP Pulse Ox O2 Del Method 09/11/23 15:19 36.6 C 62 18 129/76 97 Room Air 09/11/23 12:36 60 09/11/23 11:36 36.7 C 62 18 142/85 H 96 Room Air 09/11/23 07:33 36.5 C 61 18 161/84 H 94 Room Air Laboratory Results Laboratory Results - last 24 hr 09/11/23 07:31 WBC 7.90 RBC 4.57 L Hgb 14.4 Hct 42.4 MCV 92.8 MCH 31.5 MCHC 34.0 RDW Std Deviation 40.4 RDW Coeff of Dayana 11.9 Plt Count 159 MPV 9.2 L Immature Gran % (Auto) 0.3 Neut % (Auto) 58.0 Lymph % (Auto) 29.0 Lucas % (Auto) 8.6 Eos % (Auto) 3.8 Baso % (Auto) 0.3 Neut # (Auto) 4.59 Lymph # (Auto) 2.29 Lucas # (Auto) 0.68 H Eos # (Auto) 0.30 Baso # (Auto) 0.02 Immature Gran # (Auto) 0.02 Sodium 137 Potassium 4.2 Chloride 106 Carbon Dioxide 28 Anion Gap 3 BUN 22 Creatinine 1.69 H Est Cr Clr Drug Dosing 35.8 Est GFR ( Amer) 43.2 Est GFR (Non-Af Amer) 37.3 BUN/Creatinine Ratio 13.0 Glucose 102 H Calcium 8.3 L Magnesium 1.8
[2023-09-11] MEDS: AMIODARONE 200 MG TAB PO SCH (17:54)
--- NOTE | 2023-09-11 19:00 | Hospitalist Progress Note ---
Date of Service September 11, 2023 Assessment & Plan (1) Paroxysmal VT: Plan: ? Possible cardiovascular side effect of new Cialis medication for BPH Mild CHF on chest x-ray hx SSS status post PPM hx atrial flutter status post ablation on Eliquis Patient currently NSR 5/6 Transition to p.o. 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 Patient may need to revert back to Flomax. May benefit from inpatient [facility] urologist follow-up. Follow UA, monitor creatinine response to fluid bolus administered at the ER DVT prophylaxis. Lucyarsh Full code Admission and Anticipated Discharge Date Admission Date: September 10, 2023 Subjective Follow-up for dizziness, etc. Seen resting in bed, comfortable, not in distress States he feels fine overall No recurrence of dizziness, palpitations Sinus congestion improving as well as nasal drainage No chest pain, shortness of breath No other new symptoms Review of Systems Review of Systems: all noted and negative except for above Physical Exam Physical Exam: General- oriented x 3, not in distress, speaks in sentences with no effort or accessory muscle use Eyes- anicteric Neck- no JVD Lungs- clear breath sounds bilaterally, no rales/wheezes Heart- normal rate, regular rhythm; no murmurs Abdomen- normal bowel sounds, nondistended, soft, nontender Extremities- no pretibial edema, no calf tenderness Neuro- alert, oriented x 3; no gross focal neurologic deficits Skin- warm & dry Results & Data Results & Data Vital Signs (Past 12 Hours) Vital Signs Temp Pulse Pulse Resp BP Pulse Ox O2 Del Method 09/11/23 18:34 60 09/11/23 15:19 36.6 C 62 18 129/76 97 Room Air 09/11/23 12:36 60 09/11/23 11:36 36.7 C 62 18 142/85 H 96 Room Air 09/11/23 07:33 36.5 C 61 18 161/84 H 94 Room Air all noted and reviewed including below
[2023-09-11] MEDS: TAMSULOSIN HCL 0.4 MG CAP PO SCH (21:29)
[2023-09-11] MEDS: MAGNESIUM SULFATE / D5W 1 GM/100 ML BAG IV ONE (21:30)
[2023-09-11] MEDS: SODIUM CHLORIDE 0.9% 1,000 ML IV SCH (23:42)
[2023-09-12 06:57] LABS: BUN Creatinine Ratio 16.5 (10-20); Calcium 8.6 mg/dl (8.6-10.3); Creatinine Clr Calc Pharmacy 35.5 ml/min; Est GFR (African American) 46.8 ml/min; Est GFR (Non-African American) 40.4 ml/min
--- NOTE | 2023-09-12 13:53 | Pre Anesthesia Assessment ---
Date of Service September 12, 2023 Pre Sedation Assessment Vital Signs Temp Pulse Pulse Resp BP Pulse Ox Pulse Ox 09/12/23 13:00 67 14 137/76 97 09/12/23 11:24 36.5 C 62 18 132/84 97 09/12/23 09:00 94 09/12/23 07:59 69 09/12/23 07:38 36.9 C 62 19 142/89 H 94 09/12/23 02:49 36.4 C L 62 20 116/68 94 09/11/23 22:24 36.6 C 63 18 130/81 96 09/11/23 19:32 36.7 C 65 18 130/80 96 09/11/23 18:34 60 09/11/23 15:19 36.6 C 62 18 129/76 97 O2 Del Method O2 Del Method 09/12/23 13:00 Room Air 09/12/23 11:24 Room Air 09/12/23 09:00 Room Air 09/12/23 07:59 09/12/23 07:38 Room Air 09/12/23 02:49 Room Air 09/11/23 22:24 Room Air 09/11/23 19:32 Room Air 09/11/23 18:34 09/11/23 15:19 Room Air Cardiovascular + regular rate and + regular rhythm + S1 normal and + S2 normal no JVD no edema Respiratory normal respiratory effort, lungs clear to auscultation Pre-Sedation Airway Assessment Smoking Status: Former smoker Short, Thick Neck: No Thyromental Distance: < 3.5 Finger Breadths Oral Cavity: + Dentures Mallampati Class: II ASA: ASA2 NPO Status Date of Last Intake of Fluids: 09/11/23 Time of Last Intake of Fluids: 21:00 Date of Last Intake of Solid Food: 09/11/23 Time of Last Intake of Solid Foods: 21:00 Procedure Planning Contraindications for Sedation: none Current Medications Reviewed: Yes Notes The planned sedation has been discussed with the patient. Informed Consent was obtained. I have identified the patient, determined the appropriateness of sedation and have assessed the patient immediately prior to the procedure. All medicine(s) and interventions are by my order.
--- NOTE | 2023-09-12 14:09 | Cardiology Progress Note ---
Date of Service September 12, 2023 Assessment & Plan (1) Non-sustained ventricular tachycardia: (2) Paroxysmal atrial flutter: (3) History of cardiac radiofrequency ablation: (4) History of sick sinus syndrome: (5) Presence of permanent cardiac pacemaker: Plan Assessment: 82 year old male presents after brief near syncopal [place] Interrogation of PPM demonstrates a run of Non-sustained VT that correlates to the time of the patient's event. Requesting cardiology evaluation. Plan: 1. Non-sustained VT -Episode noted to correlate with patient's reported time of near-syncopal event. 22 second run of NSVT with rates of 192bpm. PPM interrogation is with paper chart. -Patient is currently on toprol xl and reports missing one dose in the last 48 hours, which he had taken within 12 hours of normal scheduled time. -Obtain echocardiogram to assess overall structure and function to further assess etiology -labs are within normal limits. -No recent acute illness symptoms -Troponin negative. will continue to trend. -Discussed with Dr. Palomo and ED physician with plan to start Amiodarone gtt today for 24 hours and then transition to PO Amiodarone 200mg PO Daily. -Review of prior records as noted in HPI does list hx of prior ablation for AVNRT and A-flutter, but no documentation is found to support any prior VT. -Reassess patient in the AM and based on exam, discuss response to Amio vs further consideration for ischemic work up. Would like to see response to 24 hours of Amio first. 2. paroxysmal A-flutter 3. History of cardiac RF ablation 4. History of SSS 5. presence of PPM s/t SSS -REview of telemetry does not sure any further ectopy. No evidence of A-fib or flutter. -REview of device interrogation shows less than 1% AF/AT burden -Continue on Toprol xl -Continue on Eliquis 5mg PO BID. 09/11/2023 Patient asymptomatic overnight no further arrhythmias. Pacemaker interrogation reviewed in detail. Findings reflect episode of extended ventricular tachycardia with rapid rate, correlating with patient's symptoms of near syncope Amiodarone load IV complete Will transition to oral amiodarone 200 mg twice per day Discussed evaluation further would recommend ischemic evaluation and will proceed with diagnostic coronary angiography tomorrow. Eliquis on hold Patient agreeable IV fluids overnight BMP in a.m. N.p.o. after midnight 09/12/2023 Once again no further arrhythmias issues addressed as follows 1. Symptomatic ventricular tachycardia with near syncope: LV systolic function preserved. Cardiac catheterization today without obstructive disease 40% proximal LAD negative FFR Completed IV load with amiodarone now on amiodarone 200 mg twice per day Plan EKG in a.m. Tentative discharge tomorrow. Follow-up with primary talent assistant Dr. Carlito Ivy on Monday 2. Hypertension: Continue metoprolol succinate, reduced dose 25 mg/day. Diltiazem discontinued on admission will add amlodipine 5 mg every afternoon 3. Renal insufficiency: Encouraged increased oral intake. Hydrated today. Received minimal 40 cc of IV contrast for coronary angiography. BMP in a.m. 4. Paroxysmal atrial flutter, atrial arrhythmias on chronic anticoagulation with Eliquis. Will likely discharge on possible reduced dose beginning in a.m. given GFR, age I spent a total of 30 minutes on the date of service in preparation, delivery, documentation of the care provided to the patient excluding any time spent in the performance of separately billed services. Admission and Anticipated Discharge Date Admission Date: September 10, 2023 Subjective Patient was seen and examined, chart, medications, telemetry reviewed Patient examined both prior to and after cardiac catheterization No arrhythmias on telemetry. No cardiac complaints. No dizziness or lightheadedness Review of Systems Review of Systems: All systems reviewed & are unremarkable except as noted in Subjective Physical Exam Constitutional: WD/WN, vitals as above Eyes: PERRL, conjunctivae normal, anicteric sclerae ENMT: Mallampati Class: II Neck: trachea midline, no thyromegaly Respiratory: normal respiratory effort, lungs clear to auscultation Cardiovascular: RRR, no murmur, no edema Rate/Rhythm: regular rate and regular rhythm Heart Sounds: normal S1 and normal S2; no gallop Vessels: femoral pulses present and radial pulses present; no JVD Extremities: no edema Gastrointestinal (Abdomen): normal bowel sounds, soft, nontender, no hepatosp lenomegaly Results & Data Vital Signs (Past 12 Hours) Vital Signs Temp Pulse Pulse Resp BP Pulse Ox Pulse Ox 09/12/23 13:00 67 14 137/76 97 09/12/23 11:24 36.5 C 62 18 132/84 97 09/12/23 09:00 94 09/12/23 07:59 69 09/12/23 07:38 36.9 C 62 19 142/89 H 94 09/12/23 02:49 36.4 C L 62 20 116/68 94 O2 Del Method O2 Del Method 09/12/23 13:00 Room Air 09/12/23 11:24 Room Air 09/12/23 09:00 Room Air 09/12/23 07:59 09/12/23 07:38 Room Air 09/12/23 02:49 Room Air
[2023-09-12] MEDS: NITROGLYCERIN/D5W 100MCG/ML 20ML SYR ONE (14:31)
[2023-09-12] MEDS: niCARdipine HCL INJ 2.5 MG/ML 10 ML AMP ONE (14:31)
--- NOTE | 2023-09-12 14:49 | Cardiac Catheterization ---
Cardiac Cath Procedure Brief Procedure Date September 12, 2023 Pre-Procedure Diagnosis Pre-Procedure Diagnosis: Arrhythmia AUC Score AUC Score: 8 Post-Procedure Diagnosis Post-Procedure Diagnosis: Mild CAD Procedure(s) Performed Procedure(s) Performed: Coronary Angiography and Left Heart Cath Cardiac Rehab Nurse Leodan Darden MD Vp Software Support(s) [place] Estimated Blood Loss Estimated Blood Loss: <15cc Medication(s) Medication(s): Fentanyl (12.5 mcg IV), Heparin (2500 units IV), Lidocaine 1% (Local infiltration access site), Nicardipine (250 mcg intra-arterial after arterial sheath insertion) and Versed (1 mg IV) Preliminary Findings Impression: Right dominant coronary anatomy Moderate atherosclerosis proximal left anterior descending, 40% with mild ectasia Normal left heart pressures Recommendations Recommendations: Medical Therapy and/or Counseling Specimens Specimens: None Anesthesia Start time: 1417, stop time: 1437 Procedural Complication(s) None Disposition PCU
[2023-09-12] MEDS: ADENOSINE IV SOLN 3 MG/ML 20 ML VIAL IV ONE (15:01)
--- NOTE | 2023-09-12 15:01 | Cardiac Catheterization ---
Cardiac Cath Procedure Full Procedure Date September 12, 2023 Pre-Procedure Diagnosis Pre-Procedure Diagnosis: Arrhythmia AUC Score AUC Score: 8 Post-Procedure Diagnosis Post-Procedure Diagnosis: Mild CAD Procedure(s) Performed Procedure(s) Performed: Coronary Angiography and Left Heart Cath [employer] Flatbed Driver Leodan Darden MD Printer Maintainer(s) Pao [place]ios Estimated Blood Loss Estimated Blood Loss: <15cc Medication(s) Medication(s): Fentanyl (12.5 mcg IV), Heparin (2500 units IV), Lidocaine 1% (Local infiltration access site), Nicardipine (250 mcg intra-arterial after arterial sheath insertion) and Versed (1 mg IV) Summary of Findings Impression: Right dominant coronary anatomy Moderate diffuse atherosclerosis with focal proximal left anterior descending, serial 40% with mild ectasia. Nonobstructive by FFR interrogation. Mild luminal irregularities other vasculature Normal left heart pressures Procedure: Left heart catheterization, coronary angiography Access: Right radial artery without difficulty Catheters: 6 Argentine long glide sheath, 5 Argentine [place], 5 Argentine straight pigtail Coronary angiography: Right dominant Left main: Normal length and caliber with minimal luminal irregularities distal Left anterior descending: Type III in distribution. It gives rise to a small first diagonal, a large bifurcating septal branch, a moderate second diagonal and a moderate bifurcating third diagonal all within its proximal third. Within the proximal left anterior descending there is an area of serial stenosis of 40% within the with mild ectasia. The distal vessel has mild luminal irregularities. Left circumflex: Moderately large, nondominant. It gives rise to a high marginal, 2 small obtuse marginals and a large posterolateral branch. There is minimal luminal irregularities within the circumflex system Right coronary artery: Dominant distribution moderate in caliber. It gives rise to a conus branch, two right ventricular branches, along posterior sending artery and 3 posterior ventricular branches. There are minimal luminal irregularities only Proximal left anterior stenting interrogated by FFR and negative for ischemia LV angiography: Not performed LVEDP 0 Hemodynamics Rest Ao:: Final Ao: LV: 128/0/0 Recommendations Recommendations: Medical Therapy and/or Counseling Specimens Specimens: None Radiation Exposure (mGy) 448 Contrast (mls) 40 Fluids (cc crystalloids) Fluids (cc crystalloids): 60 Anesthesia Start time: 1417, stop time: 1437 Procedural Complication(s) None Disposition PCU I attest to the content of the Intraoperative Record and any orders documented therein. Any exceptions are noted below. 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 who suffered a syncopal event Pacemaker interrogation with sustained ventricular tachycardia correlating with event CAD Presenation: Sx unlikely to be ischemic Anginal Classification: No Symptoms Cardiogenic Shock within 24 Hours: No Imaging Studies Past 6 Months: Yes Stress Studies Past 6 Months: No Standard Exercise Test: No Stress Echocardiogram: No Cardiac CTA: No Coronary Anatomy Dominant: Right Left Main (% Stenosis): Normal LAD (% Stenosis): Proximal (Serial 40% with ectasia) D1 (% Stenosis): Normal D2 (% Stenosis): Normal D3 (% Stenosis): Normal Circumflex (% Stenosis): Proximal (Mild irregularity) OM1 (% Stenosis): Normal OM2 (% Stenosis): Normal L PL1 (% Stenosis): Normal RCA (% Stenosis): Normal R PDA (% Stenosis): Normal R PL1 (% Stenosis): Normal R PL2 (% Stenosis): Normal Left Ventricular Angiography EF (%): N/A Diagnostic Physicians Name: Leodan Darden MD Status: Urgent Closure Device Percutaneous Entry Location: Radial Closure Device: Angio-Seal Recommendations: Medical Therapy and/or Counseling
[2023-09-12] MEDS: OPTIRAY 350 ONE (15:02)
[2023-09-12] MEDS: HEPARIN (PORCINE) 1000 UNIT/ML 10 ML (CATH LAB USE ONLY) ONE (15:02)
[2023-09-12] MEDS: MIDAZOLAM HCL 1 MG/ML 2ML VIAL ONE (15:03)
[2023-09-12] MEDS: fentaNYL citrate PF 100 MCG/2 ML VIAL ONE (15:04)
--- NOTE | 2023-09-12 15:37 | Post Anesthesia Assessment ---
Date of Service September 12, 2023 Post Sedation Assessment Vital Signs Temp Pulse Pulse Resp BP Pulse Ox Pulse Ox 09/12/23 15:23 72 14 129/70 95 09/12/23 13:00 67 14 137/76 97 09/12/23 11:24 97.7 F 62 18 132/84 97 09/12/23 09:00 94 09/12/23 07:59 69 09/12/23 07:38 98.4 F 62 19 142/89 H 94 09/12/23 02:49 97.5 F L 62 20 116/68 94 09/11/23 22:24 97.9 F 63 18 130/81 96 09/11/23 19:32 98.1 F 65 18 130/80 96 09/11/23 18:34 60 O2 Del Method O2 Del Method 09/12/23 15:23 Room Air 09/12/23 13:00 Room Air 09/12/23 11:24 Room Air 09/12/23 09:00 Room Air 09/12/23 07:59 09/12/23 07:38 Room Air 09/12/23 02:49 Room Air 09/11/23 22:24 Room Air 09/11/23 19:32 Room Air 09/11/23 18:34 Recovery Score Activity: Moves 4 extremities Respiration: Deep Breath/Cough Circulation: +/-20% PreAnes Value Consciousness: Fully Awake Oxygen Saturation: O2 needed for >90% Post Anesthesia Score: 2 Discharge Sedation Level of Care: Fast Track Phase II Post Sedation Plan On clinical assessment, the patient appears to have tolerated the sedation without complications. Patient is recovering as anticipated. Patient will continue to be monitored by nursing and may be discharged when sedation discharge criteria are met per below protocol. Upon Completions of procedure up to 15 minutes continue every 5 minute vital signs and the P.A.R. score; then discharge to a Phase I or Fast Track to Phase II per the following guidelines: * Discharge Patient to appropriate Phase II area if PAR is 8 or greater or return to pre- procedure baseline. The post - procedure orders will be as directed. * If PAR score is less than 8 or not return to pre-procedure baseline then patient will follow Phase I monitoring till PAR is reached for Phase II. The Phase I may be done in procedure room or may call to secure a Phase I area. * If naloxone or flumazenil are used for reversal, hold in Phase I for continued monitoring from when last reversal dose was given for a minimum of 60 minutes or longer pending the nurse and/or physician discretion of patient condition before discharge to Phase II. Please call the Sedation Physician to re-evaluate and complete post-note for discharge to Phase II area. Do NOT discharge from procedure sedation or Phase 1 until post- sedation evaluation note is complete by procedure /sedation MD Sedation Discharge Instructions to be given to the patient at discharge to home.
--- NOTE | 2023-09-12 15:43 | Cardiac Catheterization ---
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 Cardiac Status Clinical evaluation leading to the procedure CAD Presenation: Sx unlikely to be ischemic Diagnostic Physicians Name: Tor Galaviz MD Closure Device Recommendations: Medical Therapy and/or Counseling Cardiac Cath Procedure Full Procedure Date September 12, 2023 Pre-Procedure Diagnosis Pre-Procedure Diagnosis: Arrhythmia AUC Score AUC Score: 7 Post-Procedure Diagnosis Post-Procedure Diagnosis: Moderate CAD Procedure(s) Performed Procedure(s) Performed: Coronary Angiography and Fractional Flow [employer] Crusher Operator Tor Galaviz MD Fingernail Technician(s) Saeid Estimated Blood Loss Estimated Blood Loss: <15cc Medication(s) Medication(s): Adenosine and Heparin (2500 units IV) Summary of Findings FFR of proximal LAD For full details of patient's coronary angiography please see cath report dictated by Dr. Darden. Briefly, patient found to have a intermediate proximal to mid LAD stenosis. Decision to proceed with FFR. Procedure: -Left main cannulated with EBU 3.5 guide -Valenzuela Omni wire placed into distal LAD -IFR 0.94 -FFR 0.85 -Coronary angiography revealed no apparent complications post wire removal Summary: 1. Nonobstructive moderate proximal to mid LAD stenosis (FFR 0.85). Recommendations: Continued ASCVD risk factor modification per Dr. Darden. Hemodynamics Rest Ao:: 129/70/91 Final Ao: 124/68/91 LV: -- Recommendations Recommendations: Medical Therapy and/or Counseling Specimens Specimens: None Radiation Exposure (mGy) 782 Contrast (mls) 70 total Anesthesia Start time: 1437, stop time: 1502 Procedural Complication(s) None Disposition PCU I attest to the content of the Intraoperative Record and any orders documented therein. Any exceptions are noted below. [facility] Card Cath Procedure Codes Cardiac Catheterization Procedure 1: Cardiovascular Cath Procedures: 15531 (Doppler) Pressure Wire Moderate Sedation Procedure 1: Sedation/Anesthesia: 03220 Mod Sedation by the same physician; Ea [id number] Minutes PG Care Time/CCT Total # of Minutes Spent Total Time Spent with Patient: Total time spent is greater than 50% in coordination of care (as documented) at patient's floor/unit and/or counseling patient:
--- NOTE | 2023-09-12 18:37 | Hospitalist Progress Note ---
Date of Service September 12, 2023 Assessment & Plan (1) Paroxysmal VT: Plan: hx SSS status post PPM hx atrial flutter status post ablation on Eliquis Patient currently NSR 5/7 Transitioned from IV to p.o. 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 Flomax restarted [facility] urologist follow-up. DVT prophylaxis. Lucyquis Full code Anticipate d/c home tomorrow when cleared by Cardiology Admission and Anticipated Discharge Date Admission Date: September 10, 2023 Subjective ff up for dizziness, VTach episodes, etc seen resting in bed, comfortable s/p cardiac cath states he feels fine overall no recurrence of dizziness, palpitations no chest pain, dyspnea no other symptoms Review of Systems Review of Systems: all noted and negative except for above Physical Exam Physical Exam: General- oriented x 3, not in distress, speaks in sentences with no effort or accessory muscle use Eyes- anicteric Neck- no JVD Lungs- clear breath sounds bilaterally, no rales/wheezes Heart- normal rate, regular rhythm; no murmurs Abdomen- normal bowel sounds, nondistended, soft, nontender Extremities- no pretibial edema, no calf tenderness R wrist: no hematoma, active bleeding Neuro- alert, oriented x 3; no gross focal neurologic deficits Skin- warm & dry Results & Data Results & Data Vital Signs (Past 12 Hours) Vital Signs Temp Pulse Pulse Resp BP Pulse Ox Pulse Ox 09/12/23 18:01 63 09/12/23 17:50 36.4 C L 61 19 141/81 H 92 09/12/23 17:26 67 18 139/80 95 09/12/23 16:26 36.6 C 67 18 137/79 95 09/12/23 15:56 36.5 C 71 16 152/75 H 95 09/12/23 15:26 36.5 C 69 16 162/81 H 95 09/12/23 15:23 72 14 129/70 95 09/12/23 13:00 67 14 137/76 97 09/12/23 11:24 36.5 C 62 18 132/84 97 09/12/23 09:00 94 09/12/23 07:59 69 09/12/23 07:38 36.9 C 62 19 142/89 H 94 O2 Del Method O2 Del Method 09/12/23 18:01 09/12/23 17:50 Room Air 09/12/23 17:26 Room Air 09/12/23 16:26 Room Air 09/12/23 15:56 Room Air 09/12/23 15:26 Room Air 09/12/23 15:23 Room Air 09/12/23 13:00 Room Air 09/12/23 11:24 Room Air 09/12/23 09:00 Room Air 09/12/23 07:59 09/12/23 07:38 Room Air all noted and reviewed including below
[2023-09-12] MEDS: amLODIPine BESYLATE 5 MG TAB PO SCH (20:10)
--- NOTE | 2023-09-13 03:54 | Electrocardiogram Report ---
Test Reason : Blood Pressure : / mmHG Vent. Rate : 060 BPM Atrial Rate : 060 BPM P-R Int : 182 ms QRS Dur : 080 ms QT Int : 402 ms P-R-T Axes : 031 020 041 degrees QTc Int : 402 ms Atrial-paced rhythm Abnormal ECG When compared with ECG of 09-SEP-2023 23:49, Electronic atrial pacemaker has replaced Sinus rhythm Confirmed by Varun Guo ([id number]) on 09/13/2023 3:54:46 AM Referred By: REFERRED SELF Confirmed By:Varun Guo
[2023-09-13 07:02] LABS: BUN Creatinine Ratio 15.7 (10-20); Calcium 8.5 mg/dl (8.6-10.3); Creatinine Clr Calc Pharmacy 31.5 ml/min; Est GFR (African American) 40.6 ml/min; Potassium 4.4 mmol/L (3.5-5.1)
--- NOTE | 2023-09-13 12:34 | Hospitalist Progress Note ---
Date of Service September 13, 2023 Assessment & Plan (1) Paroxysmal VT: Plan: Presented with nonsustained ventricular tachycardia hx SSS status post PPM hx atrial flutter status post ablation on Lucyquzandra Received intravenous amiodarone and now on oral amiodarone as advised by the residential support specialist Reverted to sinus rhythm and is maintaining Appreciate cardiology input and recommendation He will be discharged home this afternoon and she was strongly advised to keep appointment with Dr. Ivy for EP studies on Monday s/p Cardiac cath: Nonobstructive moderate proximal to mid LAD stenosis (FFR 0.85). Will continue current medications Metoprolol succinate has been decreased to 25 mg/day and Diltiazem has been discontinued Acute/chronic sinusitis Responding to Augmentin, Flonase--> continue to complete 7 days Symptomatically better Hypertension Amlodipine was added for better blood pressure control ARF on CRI- resolved Sensorineural hearing loss status post cochlear implantation Hyperglycemia likely prediabetes, hemoglobin A1c of 5.7 last year Past tobacco abuse . Flomax restarted [facility] [place] follow-up. DVT prophylaxis. Jayesh Full code Will be discharged home this afternoon (2) Non-sustained ventricular tachycardia: (3) Paroxysmal atrial flutter: (4) BPH with obstruction/lower urinary tract symptoms: (5) Presence of permanent cardiac pacemaker: (6) History of sick sinus syndrome: Admission and Anticipated Discharge Date Admission Date: September 10, 2023 Subjective 09/13/2023 Patient Seen and examined in telemetry unit in the presence of the He has been feeling much better and denies any symptoms Does not have any palpitation, chest pain or shortness of breath at rest No arrhythmias on monitor Review of Systems Review of Systems: All systems reviewed and are unremarkable except as noted below Physical Exam Physical Exam: Sitting at the edge of the bed without any acute distress Constitutional: well developed and well nourished; not ill appearing Eyes: PERRL, conjunctivae normal, anicteric sclerae ENMT: external ear and nose normal, oropharynx normal Neck: trachea midline, no thyromegaly Respiratory: no respiratory distress Auscultation: lungs clear to auscultation bilaterally Cardiovascular: Rate/Rhythm: regular rate and regular rhythm; not tachycardic Heart Sounds: normal S1 and normal S2; no murmur Extremities: no edema Gastrointestinal (Abdomen): Inspection/Auscultation: normal bowel sounds; abdomen not distended Percussion/Palpation: abdomen soft; abdomen nontender Musculoskeletal: No record of cardiac involvement of the joints Neurologic: normal touch/pain/proprioception and moves all extremities; no focal motor deficits Psychiatric: A+Ox3, euthymic affect Lymphatic: no cervical or axillary lymphadenopathy Results & Data Results & Data Vital Signs (Past 12 Hours) Vital Signs Temp Pulse Pulse Resp BP Pulse Ox O2 Del Method 09/13/23 11:00 36.8 C 85 20 124/62 95 Room Air 09/13/23 08:03 61 09/13/23 08:00 36.7 C 72 20 114/63 97 Room Air 09/13/23 03:03 37.0 C 68 18 129/71 96 Room Air Laboratory Results [facility] 09/13/23 05:43 Sodium 136 Potassium 4.4 Chloride 104 Carbon Dioxide 25 BUN 28 H Creatinine 1.78 H Glucose 89 Calcium 8.5 L Medications Administered Current Inpatient Medications Acetaminophen (Acetaminophen 325 Mg Tab) 650 mg PO Q4H PRN PRN Reason: Pain or Fever Stop: 10/10/23 08:20 Amiodarone HCl (Amiodarone 200 Mg Tab) 200 mg PO BIDM [facility] Stop: 10/11/23 16:59 Last Admin: 09/13/23 08:33 Dose: 200 mg Amlodipine Besylate (Amlodipine Besylate 5 Mg Tab) 5 mg PO QPM [facility] Stop: 10/12/23 20:59 Last Admin: 09/12/23 20:10 Dose: 5 mg Amoxicillin/Clavulanate Potassium (Amoxicillin/Clavulanate 875 Mg Tab) 1 tab PO BIDM [facility]; Protocol Stop: 09/20/23 16:59 Last Admin: 09/13/23 08:33 Dose: 1 tab Apixaban (Apixaban 5 Mg Tablet) 5 mg PO BID [facility] Stop: 10/10/23 08:59 Last Admin: 09/10/23 20:03 Dose: 5 mg Cyanocobalamin (Cyanocobalamin (B-12) 500 Mcg Tablet) 500 mcg PO QAM [facility] Stop: 10/10/23 08:59 Last Admin: 09/13/23 08:33 Dose: 500 mcg Fluticasone Propionate (Fluticasone Propionate Na Spr 16 Gm Btl) 1 sprays NA BID [facility] Stop: 10/10/23 20:59 Last Admin: 09/13/23 08:33 Dose: 1 sprays Amiodarone HCl/Dextrose (Nexterone / D5w) 360 mg in 200 mls @ 16.667 mls/hr IV .Q12H [facility] Stop: 10/10/23 10:29 Last Infusion: 09/11/23 18:56 Dose: Infused Promethazine HCl 6.25 mg/ (Sodium Chloride) 50.25 mls @ 201 mls/hr IV Q6H PRN PRN Reason: Nausea And Vomiting Stop: 10/10/23 05:48 Lactobacillus Acidophilus (Advanced Probiotic 625 Mg Capsule) 1,250 mg PO DAILY [facility] Stop: 10/11/23 08:59 Last Admin: 09/13/23 08:33 Dose: 1,250 mg Metoprolol Succinate (Metoprolol Succ 25mg Ext Rel Tab) 25 mg PO QPM [facility] Stop: 10/10/23 20:59 Last Admin: 09/12/23 20:10 Dose: 25 mg Multivitamins (Multivitamin Tab) 1 tab PO QAM [facility] Stop: 10/10/23 08:59 Last Admin: 09/13/23 08:34 Dose: 1 tab Tamsulosin HCl (Tamsulosin Hcl 0.4 Mg Cap) 0.4 mg PO HS [facility] Stop: 10/11/23 20:59 Last Admin: 09/12/23 20:10 Dose: 0.4 mg Tramadol HCl (Tramadol Hcl 50 Mg Tablet) 25 mg PO Q4H PRN PRN Reason: Pain Stop: 10/10/23 05:48
--- NOTE | 2023-09-13 13:00 | Cardiology Progress Note ---
Date of Service September 13, 2023 Assessment & Plan (1) Non-sustained ventricular tachycardia: (2) Paroxysmal atrial flutter: (3) History of cardiac radiofrequency ablation: (4) History of sick sinus syndrome: (5) Presence of permanent cardiac pacemaker: Plan Assessment: 82 year old male presents after [place] Interrogation of PPM demonstrates a run of Non-sustained VT that correlates to the time of the patient's event. Requesting cardiology evaluation. Plan: 1. Non-sustained VT -Episode noted to correlate with patient's reported time of near-syncopal event. 22 second run of NSVT with rates of 192bpm. PPM interrogation is with paper chart. -Patient is currently on toprol xl and reports missing one dose in the last 48 hours, which he had taken within 12 hours of normal scheduled time. -Obtain echocardiogram to assess overall structure and function to further assess etiology -labs are within normal limits. -No recent acute illness symptoms -Troponin negative. will continue to trend. -Discussed with Dr. Palomo and ED physician with plan to start Amiodarone gtt today for 24 hours and then transition to PO Amiodarone 200mg PO Daily. -Review of prior records as noted in HPI does list hx of prior ablation for AVNRT and A-flutter, but no documentation is found to support any prior VT. -Reassess patient in the AM and based on exam, discuss response to Amio vs further consideration for ischemic work up. Would like to see response to 24 hours of Amio first. 2. paroxysmal A-flutter 3. History of cardiac RF ablation 4. History of SSS 5. presence of PPM s/t SSS -REview of telemetry does not sure any further ectopy. No evidence of A-fib or flutter. -REview of device interrogation shows less than 1% AF/AT burden -Continue on Toprol xl -Continue on Eliquis 5mg PO BID. 09/11/2023 Patient asymptomatic overnight no further arrhythmias. Pacemaker interrogation reviewed in detail. Findings reflect episode of extended ventricular tachycardia with rapid rate, correlating with patient's symptoms of near syncope Amiodarone load IV complete Will transition to oral amiodarone 200 mg twice per day Discussed evaluation further would recommend ischemic evaluation and will proceed with diagnostic coronary angiography tomorrow. Eliquis on hold Patient agreeable IV fluids overnight BMP in a.m. N.p.o. after midnight 09/12/2023 Once again no further arrhythmias issues addressed as follows 1. Symptomatic ventricular tachycardia with near syncope: LV systolic function preserved. Cardiac catheterization today without obstructive disease 40% proximal LAD negative FFR Completed IV load with amiodarone now on amiodarone 200 mg twice per day Plan EKG in a.m. Tentative discharge tomorrow. Follow-up with primary apiculturist Dr. Carlito Ivy on Monday 2. Hypertension: Continue metoprolol succinate, reduced dose 25 mg/day. Diltiazem discontinued on admission will add amlodipine 5 mg every afternoon 3. Renal insufficiency: Encouraged increased oral intake. Hydrated today. Received minimal 40 cc of IV contrast for coronary angiography. BMP in a.m. 4. Paroxysmal atrial flutter, atrial arrhythmias on chronic anticoagulation with Eliquis. Will likely discharge on possible reduced dose beginning in a.m. given GFR, age 509/13/2023 Assessment and plan as above. Will continue amiodarone 200 mg twice per day, metoprolol succinate. Diltiazem discontinued amlodipine added nightly. Would reduce apixaban and resume at 2.5 mg twice per day given age and renal insufficiency. Has scheduled follow-up with the EP on Monday. Will need BMP 1 week I spent a total of 30 minutes on the date of service in preparation, delivery, documentation of the care provided to the patient excluding any time spent in the performance of separately billed services. Admission and Anticipated Discharge Date Admission Date: September 10, 2023 Subjective Patient seen and examined, chart, medications, telemetry reviewed No arrhythmias on telemetry No complaints of chest pain shortness of breath dizziness Telemetry atrial paced rhythm. EKG atrial paced at 60 bpm QT corrected 406 Physical Exam Constitutional: WD/WN, vitals as above Eyes: PERRL, conjunctivae normal, anicteric sclerae ENMT: Mallampati Class: II Neck: trachea midline, no thyromegaly Respiratory: normal respiratory effort, lungs clear to auscultation Cardiovascular: RRR, no murmur, no edema Rate/Rhythm: regular rate and regular rhythm Heart Sounds: normal S1 and normal S2; no gallop Vessels: femoral pulses present and radial pulses present (Access site on right healing well); no JVD Extremities: no edema Gastrointestinal (Abdomen): normal bowel sounds, soft, nontender, no hepatosplenomegaly Results & Data Vital Signs (Past 12 Hours) Vital Signs Temp Pulse Pulse Resp BP Pulse Ox O2 Del Method 09/13/23 11:00 36.8 C 85 20 124/62 95 Room Air 09/13/23 08:03 61 09/13/23 08:00 36.7 C 72 20 114/63 97 Room Air 09/13/23 03:03 37.0 C 68 18 129/71 96 Room Air Laboratory Results Laboratory Results - last 24 hr 09/13/23 09/13/23 05:43 11:34 Sodium 136 Potassium 4.4 Chloride 104 Carbon Dioxide 25 Anion Gap 7 BUN 28 H Creatinine 1.78 H Est Cr Clr Drug Dosing 31.5 Est GFR ( Amer) 40.6 Est GFR (Non-Af Amer) 35.0 BUN/Creatinine Ratio 15.7 Glucose 89 POC Glucose 93 Calcium 8.5 L
[2023-09-13] MEDS ORDERED: APIXABAN 2.5 MG TAB PO SCH (13:15)
--- NOTE | 2023-09-14 07:52 | Discharge Summary ---
Date of Service September 13, 2023 Admission HPI Per Admitting Provider History obtained from patient, family, and records. Medical history significant for SSS status post PPM, atrial flutter status post ablation on Eliquis, hypertension, CRI (baseline creatinine 1.4), GERD, BPH, sensorineural hearing loss status post cochlear implantation, past tobacco abuse. Patient is a resident of [place], [place] who has been staying at a hunting camp close to [facility] with family the last few days. Patient seen at [facility] Urology office 2 weeks ago for BPH symptoms. Patient started on Cialis because Flomax not working well as per note. While driving to [place] [employer] few days ago, patient felt dizziness described as lightheadedness. [place] like he was going to pass out. Transient chest discomfort symptoms. He had to stop car while driving. [place] like an A-fib episode as per patient. Patient later on received a call from his [place] import coordinator's office that day. 'Fast heartbeat episode' picked up on remote ICD monitoring. He was told to take extra metoprolol tablet. Last night, patient experienced recurrent episode more pronounced. Transient headache with bilateral blurred vision symptoms. Chest discomfort with some SOB. Episode lasting less than a minute as per patient. Patient compliant with home meds. Denies unusual stress. But thinks he might have been exerting a little more effort than usual for hunting trip. Patient brought to ER for evaluation. Paroxysmal VT episode lasting 20 seconds upon ICD interrogation as per [employer] billing and quality technician. 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 Principal Diagnosis Paroxysmal ventricular tachycardia, paroxysmal atrial flutter history of ablation, hypertension Discharge Exam Sitting at the edge of the bed without any acute distress Constitutional well developed and well nourished; not ill appearing Eyes PERRL, conjunctivae normal, anicteric sclerae ENMT external ear and nose normal, oropharynx normal Neck trachea midline, no thyromegaly Respiratory no respiratory distress Auscultation: lungs clear to auscultation bilaterally Cardiovascular Rate/Rhythm: regular rate and regular rhythm; not tachycardic Heart Sounds: normal S1 and normal S2; no murmur Extremities: no edema Gastrointestinal (Abdomen) Inspection/Auscultation: normal bowel sounds; abdomen not distended Percussion/Palpation: abdomen soft; abdomen nontender Neurologic normal touch/pain/proprioception and moves all extremities; no focal motor deficits Psychiatric A+Ox3, euthymic affect Lymphatic no cervical or axillary lymphadenopathy Discharge Data Allergies Allergy/AdvReac Type Severity Reaction Status Date / Time No Known Allergies Allergy Verified 06/21/22 08:50 Consultations 09/10/23 02:52 ED Decision to Admit Stat 09/10/23 08:21 Consult Cardiology Routine Procedures Performed Operation Date: 09/12/23 13:00 Actual Procedures p Cineradiography w/Routine Exam - Leodan Darden MD p Cath, Left with Cors and Vent - Leodan Darden MD s Fraction Flow Allen SGL Ves - Tor Galaviz MD Ordered Studies 09/10/23 02:59 CT head/brain wo con Stat 09/12/23 07:05 CL Cath Imgs for PACS use only Routine Hospital Course (1) Paroxysmal VT: Presented with nonsustained ventricular tachycardia hx SSS status post PPM hx atrial flutter status post ablation on Eliquis Received intravenous amiodarone and now on oral amiodarone as advised by the import coordinator Reverted to sinus rhythm and is maintaining Appreciate cardiology input and recommendation He will be discharged home this afternoon and she was strongly advised to keep appointment with Dr. Ivy for EP studies on Monday s/p Cardiac cath: Nonobstructive moderate proximal to mid LAD stenosis (FFR 0.85). Will continue current medications Metoprolol succinate has been decreased to 25 mg/day and Diltiazem has been discontinued Acute/chronic sinusitis Responding to Augmentin, Flonase--> continue to complete 7 days Symptomatically better Hypertension Amlodipine was added for better blood pressure control ARF on CRI- resolved Sensorineural hearing loss status post cochlear implantation Hyperglycemia likely prediabetes, hemoglobin A1c of 5.7 last year Past tobacco abuse . Fl[place]ax restarted [facility] [place]. DVT prophylaxis. Jayesh Full code Will be discharged home this afternoon (2) Non-sustained ventricular tachycardia: (3) Paroxysmal atrial flutter: (4) BPH with obstruction/lower urinary tract symptoms: (5) Presence of permanent cardiac pacemaker: (6) History of sick sinus syndrome: Total Time Total Time Spent Total Time Spent (In Minutes): 40 minutes Discharge Plan Discharge Items Patient Disposition: Home - Self-Care Reason For Visit: PVT Discharge Diagnosis: Paroxysmal ventricular tachycardia, paroxysmal atrial flutter history of ablation, hypertension Condition on Discharge: Fair Activity: Resume your previous activity Non-emergency contact: Primary Care Provider Call non-emergency contact if: you have any medication questions and your symptoms worsen Follow-up/Referrals: Crow Lenz MD [Primary Care Provider] - 09/19/23 11:30 am () Diet: Heart Healthy Addtl Attending Provider Instructions: Please take precautions to avoid falls Take your medications as advised Your metoprolol succinate has been decreased to 25 mg a day and diltiazem has been discontinued Amlodipine has been added to control blood pressure and you will be taking amiodarone as advised Finish the course of antibiotic and you can take [id number] probiotics Please keep appointments with healthcare providers Addtl Pet Stylist Provider Instructions: ACTIVITY RECOMMENDATIONS: Excess manipulation of the wrist should be avoided for the next 24-48 hours. * No lifting over 2 pounds (approximately a 1/2 gallon of milk) with the utilized arm for 24 hours. * No strenuous activity such as bowling or tennis for 3 days. * Keep the site of the procedure covered with a bandage for 24 hours. *You may shower the day after the procedure. Do not take a tub bath or submerge the puncture site in water for the next 3 days. *Do not operate any motorized equipment for 3 days. SPECIAL CARE INSTRUCTIONS: The site may be slightly bruised and sore following your procedure. Should any of the following occur, contact the Dr. who performed your procedure. 1. Redness/inflammation, swelling, chills, or fever, or colored drainage at procedure site within 3-7 days after your procedure. 2. Coldness, discoloration, ongoing numbness, severe pain, or swelling. Expect mild tingling of hand and tenderness at the puncture site for up to three days. If this persists beyond three days, or other symptoms develop, notify the Dr. who performed your procedure. BLEEDING: If the procedure site on your wrist begins to bleed, do not panic 1. Place 1 or 2 fingers firmly just slightly above the insertion site to stop the bleeding. You may be able to feel your pulse as you hold pressure. 2. Lift your finger after 5 minutes to see if the bleeding has stopped. 3. Once the bleeding has stopped, gently wipe the wrist area clean with a bandage. * If the bleeding from your wrist does not stop after 10 minutes, or if there is a large amount of bleeding or spurting, call 911 (do not drive yourself to the hospital). SKIN IRRITATION: * You may experience some redness and/or swelling in the area where radiation was administered. If any skin irritation occurs, please contact your family physician. FOLLOW UP VISIT: Keep any scheduled doctor appointments. Pending Studies at Discharge: No Stand-Alone Forms: My [facility], Smoking Cessation Medications and DC Order Prescriptions: New amiodarone 200 mg Tablet 200 mg PO BIDM Qty: 60 0RF amlodipine [Norvasc] 5 mg Tablet 5 mg PO QPM Qty: 30 0RF fluticasone propionate 50 mcg/actuation [place],Suspension 1 spray NA BID Qty: 1 0RF amoxicillin-pot clavulanate 875-125 mg Tablet 1 tab PO BIDM Qty: 10 0RF Continued tadalafil [Cialis] 5 mg tablet 5 mg PO DAILY Qty: 90 3RF multivitamin Tablet 1 tab PO QAM cyanocobalamin (vitamin B-12) [Vitamin B-12] 500 mcg Tablet 500 mcg PO QAM cholecalciferol (vitamin D3) [Vitamin D3] 10 mcg (400 unit) Tablet 10 mcg PO QAM Eliquis 5 mg Tablet 5 mg PO BID omega-3 fatty acids Capsule 1,500 mg PO DAILY Changed metoprolol succinate 25 mg Capsule,Sprinkle,Er 24hr 25 mg PO QPM Qty: 0 0RF Discontinued diltiazem HCl 240 mg Capsule,Extended Release 24 Hr 240 mg PO QAM Discharge Orders: Discharge Order (Routine); Ordered 09/13/23 Ordered By: Opal George Admission Data Admit Date/Time: 09/10/23 05:47 Attending Provider: Opal George Admit Provider: Corby Cesar Primary Care Provider: Crow Lenz Other Providers: Corby Cesar; Nery Teresa; Joe Winchester; Leodan Darden; Anton Billy; Carlito Mendiola; Mamadou aPtel; Teresa Santoro; Day Gonzales; Chelsie Lozada; Nery Hidalgo; Sean Mcbride; Judson Palomo; Suzanne Lopez; Caitlin Hayes; No Llanos; Jacquelin Hutson; Charlie Alfred; Jennifer Gordon Other Interventions: Discharge Summary Assessment (RN) Last Done: 09/13/23 13:57
--- NOTE | 2023-09-15 05:52 | Electrocardiogram Report ---
Test Reason : Blood Pressure : / mmHG Vent. Rate : 060 BPM Atrial Rate : 060 BPM P-R Int : 192 ms QRS Dur : 076 ms QT Int : 406 ms P-R-T Axes : 033 010 020 degrees QTc Int : 406 ms Atrial-paced rhythm Abnormal ECG When compared with ECG of 11-SEP-2023 16:32, No significant change was found Confirmed by Varun Guo ([id number]) on 09/15/2023 5:51:59 AM Referred By: REFERRED SELF Confirmed By:Varun Guo
== END 2023-09-13 15:00 | disposition home or self-care (01) | DRG 287 ==
LOC: ED 23:29 → SUATTDRO 09-10 05:47 → EDINP 09-10 05:47 → 2S 09-10 08:03